=== PATIENT | male | born 1960 | race African-American/Black ===

== ENCOUNTER 2019-11-04 22:33 | Inpatient (IN) | payer OTHER ==
[2019-11-04 22:42] VITALS: BMI 32.6
--- NOTE | 2019-11-04 22:47 | PDOC ---
History of Present Illness - General Chief Complaint: Shortness of Breath Stated Complaint: DIFF. BREATHING Time Seen by Provider: 11/04/19 22:46 - History of Present Illness Initial Comments: Hx limited 2/2 patient clinical condition. Obtained via EMS. Jakob Yin is a 59 y/o male with PMH significant for ?CHF, ?COPD, BIBEMS today for lethargy and hypoxia. EMS reports that they were called by a coworker because the patient was lethargic. Saturations in the 70s per EMS. Placed on 5L NC with improvement to 90%. Pt is A&Ox3, lethargic, arousable to verbal and noxious stimuli. States that he does not have any complaints at this time. Past History - Medical History Allergies/Adverse Reactions: Allergies Allergy/AdvReac Type Severity Reaction Status Date / Time No Known Allergies Allergy Verified 11/04/19 22:42 Home Medications: Ambulatory Orders Albuterol Sulfate [Albuterol Sulfate Hfa] 1 - 2 inh IH Q4H PRN 11/05/19 Aripiprazole [Abilify] 10 mg PO HS 11/05/19 Ferrous Sulfate 325 mg PO DAILY 11/05/19 Furosemide [Lasix -] 40 mg PO DAILY 11/05/19 Metformin HCl [Glucophage] 500 mg PO BID 11/05/19 Prazosin HCl [Minipress -] 2 mg PO HS 11/05/19 - Psycho-Social/Smoking History Smoking History: Never smoked - Substance Abuse Hx (Audit-C & DAST Scrn) How often the patient has a drink containing alcohol: Monthly or less Number of drinks the patient has on a typical day: 1 or 2 How often the patient has six or more drinks on one occasion: Never Score: In Men: 4 or > Positive; In Women: 3 or > Positive: 1 Screen Result (Pos requires Nsg. Audit-10AR): Negative In the last yr the pt used illegal drug/Rx for NonMed reason: No Score: Yes response is considered Positive: 0 Screen Result (Positive result requires Nsg. DAST-10): Negative Review of Systems - Review of Systems Able to Perform ROS?: No (pt clinical condition ) *Physical Exam - Vital Signs Last Vital Signs Temp Pulse Resp BP Pulse Ox 97.3 F L 90 20 102/66 97 11/04/19 22:37 11/04/19 22:37 11/04/19 22:37 11/04/19 22:37 11/04/19 22:37 - Physical Exam GENERAL: Lethargic, arousable to noxious and verbal stimuli, A&Ox3, in no acute distress_ HEAD: No signs of trauma, normocephalic, atraumatic _ EYES: PERRLA, EOMI, sclera anicteric, conjunctiva clear_ ENT: Hearing grossly normal, nares patent, oropharynx clear without exudates. No uvular deviation. Moist mucosa_ NECK: Normal ROM, supple, no lymphadenopathy, JVD, or masses. No c-spine TTP. LUNGS: No distress, clear to auscultation bilaterally, positive air movements bilaterally. HEART: Regular rate and rhythm, normal S1 and S2, no murmurs appreciated, peripheral pulses normal and equal bilaterally._ ABDOMEN: Soft, nontender. No guarding, no rebound. No masses_ BACK: No open wounds or obvious trauma. EXTREMITIES: Normal inspection, Normal range of motion, no edema. No clubbing or cyanosis. No obvious trauma to extremities. NEUROLOGICAL: Unable to assess 2/2 patient clinical condition. SKIN: Warm, Dry, normal turgor, no rashes or lesions noted. ED Treatment Course - LABORATORY CBC & Chemistry Diagram: 11/06/19 06:20 11/06/19 06:20 Medical Decision Making - Medical Decision Making 59M ?CHF ?COPD BIBEMS for lethargy. Hypoxic to 70s, improved to 100% on 5L NC. VSS stable on presentation. Recently d/c from [facility] for possible sepsis. Call placed to [facility] for additional information but ED supervisor hardboard states no staff member available to provide additional info. -labs -tox screen -ct head/neck -ekg -cxr -urine -blood gas 11/04/19 23:17 CXR shows cardiomegaly otherwise no acute chest pathology. No prior CXR to compare. 11/04/19 23:43 ABG reviewed. Laboratory Last Values Anticoagulation Therapy No Result Required. 11/04/19 23:16 Puncture Site No Result Required. 11/04/19 23:16 Patient Temperature No Result Required. 11/04/19 23:16 ABG pH 7.178 (7.350-7.450) L* 11/04/19 23:16 ABG pCO2 72.80 mmHg (35-45) H* 11/04/19 23:16 ABG pO2 104.8 mmHg (80-100) H 11/04/19 23:16 ABG HCO3 26.4 mmol/L (22-27) 11/04/19 23:16 ABG O2 Sat (Measured) 96.2 mmHg (95-98) 11/04/19 23:16 ABG O2 Content No Result Required. 11/04/19 23:16 ABG Base Excess -3.8 mmol/L (-2-2) L 11/04/19 23:16 Lázaro Test No Result Required. 11/04/19 23:16 Patient On Oxygen No Result Required. 11/04/19 23:16 O2 Delivery Device No Result Required. 11/04/19 23:16 Oxygen Flow Rate No Result Required. 11/04/19 23:16 Vent Mode No Result Required. 11/04/19 23:16 Vent Rate No Result Required. 11/04/19 23:16 Mechanical Rate No Result Required. 11/04/19 23:16 PEEP No Result Required. 11/04/19 23:16 Pressure Support Vent No Result Required. 11/04/19 23:16 11/05/19 01:10 EKG shows 94 bpm, NSR, right axis, QTc 442, no ST elevation. 11/05/19 01:11 CT head negative for acute intracranial pathology. 11/05/19 01:37 CT neck negative for acute fracture. 11/05/19 01:46 Labs reviewed. Laboratory Last Values WBC 6.1 K/mm3 (4.0-10.0) 11/05/19 00:00 RBC 6.08 M/mm3 (4.00-5.60) H 11/05/19 00:00 Hgb 14.3 GM/dL (11.7-16.9) 11/05/19 00:00 Hct 49.5 % (35.4-49) H 11/05/19 00:00 MCV 81.5 fl (80-96) 11/05/19 00:00 MCH 23.5 pg (25.7-33.7) L 11/05/19 00:00 MCHC 28.8 g/dl (32.0-35.9) L 11/05/19 00:00 RDW 22.3 % (11.9-15.9) H 11/05/19 00:00 Plt Count 183 K/MM3 (134-434) 11/05/19 00:00 MPV 10.0 fl (7.5-11.1) 11/05/19 00:00 Absolute Neuts (auto) 2.7 K/mm3 (1.5-8.0) 11/05/19 00:00 Neutrophils % 44.1 % (42.8-82.8) 11/05/19 00:00 Lymphocytes % 43.1 % (8-40) H 11/05/19 00:00 Monocytes % 9.5 % (3.8-10.2) 11/05/19 00:00 Eosinophils % 2.9 % (0-4.5) 11/05/19 00:00 Basophils % 0.4 % (0-2.0) 11/05/19 00:00 Nucleated RBC % 0 % (0-0) 11/05/19 00:00 PT with INR 10.90 SEC (9.7-13.0) 11/05/19 00:08 INR 0.92 (0.83-1.09) 11/05/19 00:08 PTT (Actin FS) 38.3 SECONDS (25.2-36.5) H 11/05/19 00:08 Anticoagulation Therapy No Result Required. 11/04/19 23:16 Puncture Site No Result Required. 11/04/19 23:16 Patient Temperature No Result Required. 11/04/19 23:16 ABG pH 7.178 (7.350-7.450) L* 11/04/19 23:16 ABG pCO2 72.80 mmHg (35-45) H* 11/04/19 23:16 ABG pO2 104.8 mmHg (80-100) H 11/04/19 23:16 ABG HCO3 26.4 mmol/L (22-27) 11/04/19 23:16 ABG O2 Sat (Measured) 96.2 mmHg (95-98) 11/04/19 23:16 ABG O2 Content No Result Required. 11/04/19 23:16 ABG Base Excess -3.8 mmol/L (-2-2) L 11/04/19 23:16 Lázaro Test No Result Required. 07/06/20 23:16 Patient On Oxygen No Result Required. 11/04/19 23:16 O2 Delivery Device No Result Required. 11/04/19 23:16 Oxygen Flow Rate No Result Required. 11/04/19 23:16 Vent Mode No Result Required. 11/04/19 23:16 Vent Rate No Result Required. 11/04/19 23:16 Mechanical Rate No Result Required. 11/04/19 23:16 PEEP No Result Required. 11/04/19 23:16 Pressure Support Vent No Result Required. 11/04/19 23:16 Sodium 136 mmol/L (136-145) 11/05/19 00:08 Potassium 4.3 mmol/L (3.5-5.1) 11/05/19 00:08 Chloride 100 mmol/L (98-107) 11/05/19 00:08 Carbon Dioxide 31 mmol/L (21-32) 11/05/19 00:08 Anion Gap 5 MMOL/L (8-16) L 11/05/19 00:08 BUN 20.0 mg/dL (7-18) H 11/05/19 00:08 Creatinine 0.8 mg/dL (0.55-1.3) 11/05/19 00:08 Est GFR (CKD-EPI)AfAm 114.13 11/05/19 00:08 Est GFR (CKD-EPI)NonAf 98.47 11/05/19 00:08 Random Glucose 121 mg/dL (74-106) H 11/05/19 00:08 Lactic Acid 0.7 mmol/L (0.4-2.0) 11/05/19 00:06 Calcium 9.6 mg/dL (8.5-10.1) 11/05/19 00:08 Total Bilirubin 0.4 mg/dL (0.2-1) 11/05/19 00:08 AST 26 U/L (15-37) 11/05/19 00:08 ALT 30 U/L (13-61) 11/05/19 00:08 Alkaline Phosphatase 141 U/L (45-117) H 11/05/19 00:08 Ammonia 33.10 umol/L (11-32) H 11/05/19 00:00 Creatine Kinase 52 U/L (26-308) 11/05/19 00:08 Troponin I < 0.02 ng/ml (0.00-0.05) 11/05/19 00:08 B-Natriuretic Peptide 44.1 pg/ml (5-125) 11/05/19 00:05 Total Protein 9.4 g/dl (6.4-8.2) H 11/05/19 00:08 Albumin 4.1 g/dl (3.4-5.0) 11/05/19 00:08 TSH 3.98 uIU/ml (0.358-3.74) H 11/05/19 00:08 Alcohol, Quantitative < 3 mg/dL (0.0-5.0) 11/05/19 00:08 11/05/19 02:51 Labs reviewed. Laboratory Last Values WBC 6.1 K/mm3 (4.0-10.0) 11/05/19 00:00 RBC 6.08 M/mm3 (4.00-5.60) H 11/05/19 00:00 Hgb 14.3 GM/dL (11.7-16.9) 11/05/19 00:00 Hct 49.5 % (35.4-49) H 11/05/19 00:00 MCV 81.5 fl (80-96) 11/05/19 00:00 MCH 23.5 pg (25.7-33.7) L 11/05/19 00:00 MCHC 28.8 g/dl (32.0-35.9) L 11/05/19 00:00 RDW 22.3 % (11.9-15.9) H 11/05/19 00:00 Plt Count 183 K/MM3 (134-434) 11/05/19 00:00 MPV 10.0 fl (7.5-11.1) 11/05/19 00:00 Absolute Neuts (auto) 2.7 K/mm3 (1.5-8.0) 11/05/19 00:00 Neutrophils % 44.1 % (42.8-82.8) 11/05/19 00:00 Lymphocytes % 43.1 % (8-40) H 11/05/19 00:00 Monocytes % 9.5 % (3.8-10.2) 11/05/19 00:00 Eosinophils % 2.9 % (0-4.5) 11/05/19 00:00 Basophils % 0.4 % (0-2.0) 11/05/19 00:00 Nucleated RBC % 0 % (0-0) 11/05/19 00:00 PT with INR 10.90 SEC (9.7-13.0) 11/05/19 00:08 INR 0.92 (0.83-1.09) 11/05/19 00:08 PTT (Actin FS) 38.3 SECONDS (25.2-36.5) H 11/05/19 00:08 Anticoagulation Therapy No Result Required. 11/05/19 02:00 Puncture Site Right radial 11/05/19 02:00 Patient Temperature No Result Required. 11/05/19 02:00 ABG pH 7.211 (7.350-7.450) L 11/05/19 02:00 ABG pCO2 69.60 mmHg (35-45) H 11/05/19 02:00 ABG pO2 104.9 mmHg (80-100) H 11/05/19 02:00 ABG HCO3 27.3 mmol/L (22-27) H 11/05/19 02:00 ABG O2 Sat (Measured) 96.5 mmHg (95-98) 11/05/19 02:00 ABG O2 Content No Result Required. 11/05/19 02:00 ABG Base Excess -2.3 mmol/L (-2-2) L 11/05/19 02:00 Lázaro Test Positive 11/05/19 02:00 Patient On Oxygen Yes 11/05/19 02:00 O2 Delivery Device Abg 11/05/19 02:00 Oxygen Flow Rate 40% 11/05/19 02:[address] 11/05/19 02:00 Vent Rate 22 11/05/19 02:00 Mechanical Rate No Result Required. 11/05/19 02:00 PEEP 6.0 cmH2O 11/05/19 02:00 Pressure Support Vent 18/0 11/05/19 02:00 Sodium 136 mmol/L (136-145) 11/05/19 00:08 Potassium 4.3 mmol/L (3.5-5.1) 11/05/19 00:08 Chloride 100 mmol/L (98-107) 11/05/19 00:08 Carbon Dioxide 31 mmol/L (21-32) 11/05/19 00:08 Anion Gap 5 MMOL/L (8-16) L 11/05/19 00:08 BUN 20.0 mg/dL (7-18) H 11/05/19 00:08 Creatinine 0.8 mg/dL (0.55-1.3) 11/05/19 00:08 Est GFR (CKD-EPI)AfAm 114.13 11/05/19 00:08 Est GFR (CKD-EPI)NonAf 98.47 11/05/19 00:08 Random Glucose 121 mg/dL (74-106) H 11/05/19 00:08 Lactic Acid 0.7 mmol/L (0.4-2.0) 11/05/19 00:06 Calcium 9.6 mg/dL (8.5-10.1) 11/05/19 00:08 Total Bilirubin 0.4 mg/dL (0.2-1) 11/05/19 00:08 AST 26 U/L (15-37) 11/05/19 00:08 ALT 30 U/L (13-61) 11/05/19 00:08 Alkaline Phosphatase 141 U/L (45-117) H 11/05/19 00:08 Ammonia 33.10 umol/L (11-32) H 11/05/19 00:00 Creatine Kinase 52 U/L (26-308) 11/05/19 00:08 Troponin I < 0.02 ng/ml (0.00-0.05) 11/05/19 00:08 B-Natriuretic Peptide 44.1 pg/ml (5-125) 11/05/19 00:05 Total Protein 9.4 g/dl (6.4-8.2) H 11/05/19 00:08 Albumin 4.1 g/dl (3.4-5.0) 11/05/19 00:08 TSH 3.98 uIU/ml (0.358-3.74) H 11/05/19 00:08 Urine Color Yellow 11/05/19 01:43 Urine Appearance Clear 11/05/19 01:43 Urine pH 5.0 (5.0-8.0) 11/05/19 01:43 Ur Specific Markle 1.017 (1.010-1.035) 11/05/19 01:43 Urine Protein Negative (NEGATIVE) 11/05/19 01:43 Urine Glucose (UA) Negative (NEGATIVE) 11/05/19 01:43 Urine Ketones Negative (NEGATIVE) 11/05/19 01:43 Urine Blood Negative (NEGATIVE) 11/05/19 01:43 Urine Nitrite Negative (NEGATIVE) 11/05/19 01:43 Urine Bilirubin Negative (NEGATIVE) 11/05/19 01:43 Urine Urobilinogen 1.0 mg/dL (0.2-1.0) 11/05/19 01:43 Ur Leukocyte Esterase Negative (NEGATIVE) 11/05/19 01:43 Salicylates 2.6 mg/dL (2.8-20) L 11/05/19 00:05 Acetaminophen <2.0 ug/ml 11/05/19 00:05 Alcohol, Quantitative < 3 mg/dL (0.0-5.0) 11/05/19 00:08 ABG improving. Will start azithro. 11/05/19 03:26 UA reviewed. Laboratory Last Values WBC 6.1 K/mm3 (4.0-10.0) 11/05/19 00:00 RBC 6.08 M/mm3 (4.00-5.60) H 11/05/19 00:00 Hgb 14.3 GM/dL (11.7-16.9) 11/05/19 00:00 Hct 49.5 % (35.4-49) H 11/05/19 00:00 MCV 81.5 fl (80-96) 11/05/19 00:00 MCH 23.5 pg (25.7-33.7) L 11/05/19 00:00 MCHC 28.8 g/dl (32.0-35.9) L 11/05/19 00:00 RDW 22.3 % (11.9-15.9) H 11/05/19 00:00 Plt Count 183 K/MM3 (134-434) 11/05/19 00:00 MPV 10.0 fl (7.5-11.1) 11/05/19 00:00 Absolute Neuts (auto) 2.7 K/mm3 (1.5-8.0) 11/05/19 00:00 Neutrophils % 44.1 % (42.8-82.8) 11/05/19 00:00 Lymphocytes % 43.1 % (8-40) H 11/05/19 00:00 Monocytes % 9.5 % (3.8-10.2) 11/05/19 00:00 Eosinophils % 2.9 % (0-4.5) 11/05/19 00:00 Basophils % 0.4 % (0-2.0) 11/05/19 00:00 Nucleated RBC % 0 % (0-0) 11/05/19 00:00 PT with INR 10.90 SEC (9.7-13.0) 11/05/19 00:08 INR 0.92 (0.83-1.09) 11/05/19 00:08 PTT (Actin FS) 38.3 SECONDS (25.2-36.5) H 11/05/19 00:08 Anticoagulation Therapy No Result Required. 11/05/19 02:00 Puncture Site Right radial 11/05/19 02:00 Patient Temperature No Result Required. 11/05/19 02:00 ABG pH 7.211 (7.350-7.450) L 11/05/19 02:00 ABG pCO2 69.60 mmHg (35-45) H 11/05/19 02:00 ABG pO2 104.9 mmHg (80-100) H 11/05/19 02:00 ABG HCO3 27.3 mmol/L (22-27) H 11/05/19 02:00 ABG O2 Sat (Measured) 96.5 mmHg (95-98) 11/05/19 02:00 ABG O2 Content No Result Required. 11/05/19 02:00 ABG Base Excess -2.3 mmol/L (-2-2) L 11/05/19 02:00 Lázaro Test Positive 11/05/19 02:00 Patient On Oxygen Yes 11/05/19 02:00 O2 Delivery Device Abg 11/05/19 02:00 Oxygen Flow Rate 40% 11/05/19 02:[address] 11/05/19 02:00 Vent Rate 22 11/05/19 02:00 Mechanical Rate No Result Required. 11/05/19 02:00 PEEP 6.0 cmH2O 11/05/19 02:00 Pressure Support Vent 18/0 11/05/19 02:00 Sodium 136 mmol/L (136-145) 11/05/19 00:08 Potassium 4.3 mmol/L (3.5-5.1) 11/05/19 00:08 Chloride 100 mmol/L (98-107) 11/05/19 00:08 Carbon Dioxide 31 mmol/L (21-32) 11/05/19 00:08 Anion Gap 5 MMOL/L (8-16) L 11/05/19 00:08 BUN 20.0 mg/dL (7-18) H 11/05/19 00:08 Creatinine 0.8 mg/dL (0.55-1.3) 11/05/19 00:08 Est GFR (CKD-EPI)AfAm 114.13 11/05/19 00:08 Est GFR (CKD-EPI)NonAf 98.47 11/05/19 00:08 Random Glucose 121 mg/dL (74-106) H 11/05/19 00:08 Lactic Acid 0.7 mmol/L (0.4-2.0) 11/05/19 00:06 Calcium 9.6 mg/dL (8.5-10.1) 11/05/19 00:08 Total Bilirubin 0.4 mg/dL (0.2-1) 11/05/19 00:08 AST 26 U/L (15-37) 11/05/19 00:08 ALT 30 U/L (13-61) 11/05/19 00:08 Alkaline Phosphatase 141 U/L (45-117) H 11/05/19 00:08 Ammonia 33.10 umol/L (11-32) H 11/05/19 00:00 Creatine Kinase 52 U/L (26-308) 11/05/19 00:08 Troponin I < 0.02 ng/ml (0.00-0.05) 11/05/19 00:08 B-Natriuretic Peptide 44.1 pg/ml (5-125) 11/05/19 00:05 Total Protein 9.4 g/dl (6.4-8.2) H 11/05/19 00:08 Albumin 4.1 g/dl (3.4-5.0) 11/05/19 00:08 TSH 3.98 uIU/ml (0.358-3.74) H 11/05/19 00:08 Urine Color Yellow 11/05/19 01:43 Urine Appearance Clear 11/05/19 01:43 Urine pH 5.0 (5.0-8.0) 11/05/19 01:43 Ur Specific Markle 1.017 (1.010-1.035) 11/05/19 01:43 Urine Protein Negative (NEGATIVE) 11/05/19 01:43 Urine Glucose (UA) Negative (NEGATIVE) 11/05/19 01:43 Urine Ketones Negative (NEGATIVE) 11/05/19 01:43 Urine Blood Negative (NEGATIVE) 11/05/19 01:43 Urine Nitrite Negative (NEGATIVE) 11/05/19 01:43 Urine Bilirubin Negative (NEGATIVE) 11/05/19 01:43 Urine Urobilinogen 1.0 mg/dL (0.2-1.0) 11/05/19 01:43 Ur Leukocyte Esterase Negative (NEGATIVE) 11/05/19 01:43 Salicylates 2.6 mg/dL (2.8-20) L 11/05/19 00:05 Opiates Screen Positive ng/ml (JXSKOQ=552) A* 11/05/19 01:43 Methadone Screen Negative ng/ml (NIINXQ=817) 11/05/19 01:43 Acetaminophen <2.0 ug/ml 11/05/19 00:05 Barbiturate Screen Negative ng/ml (PLUYUI=173) 11/05/19 01:43 Phencyclidine Screen Negative ng/ml (CUTOFF=25) 11/05/19 01:43 Ur Amphetamines Screen Negative ng/ml (NHYPZF=297) 11/05/19 01:43 MDMA (Ecstasy) Screen Negative ng/ml (GNFXQQ=911) 11/05/19 01:43 Benzodiazepines Screen Positive ng/ml (APXCQT=501) A* 11/05/19 01:43 Cocaine Screen Positive ng/ml (SLTCIO=040) A* 11/05/19 01:43 U Marijuana (THC) Screen Positive ng/ml (CUTOFF=50) A* 11/05/19 01:43 Alcohol, Quantitative < 3 mg/dL (0.0-5.0) 11/05/19 00:08 11/05/19 06:20 Labs reviewed. Laboratory Last Values WBC 6.1 K/mm3 (4.0-10.0) 11/05/19 00:00 RBC 6.08 M/mm3 (4.00-5.60) H 11/05/19 00:00 Hgb 14.3 GM/dL (11.7-16.9) 11/05/19 00:00 Hct 49.5 % (35.4-49) H 11/05/19 00:00 MCV 81.5 fl (80-96) 11/05/19 00:00 MCH 23.5 pg (25.7-33.7) L 11/05/19 00:00 MCHC 28.8 g/dl (32.0-35.9) L 11/05/19 00:00 RDW 22.3 % (11.9-15.9) H 11/05/19 00:00 Plt Count 183 K/MM3 (134-434) 11/05/19 00:00 MPV 10.0 fl (7.5-11.1) 11/05/19 00:00 Absolute Neuts (auto) 2.7 K/mm3 (1.5-8.0) 11/05/19 00:00 Neutrophils % 44.1 % (42.8-82.8) 11/05/19 00:00 Lymphocytes % 43.1 % (8-40) H 11/05/19 00:00 Monocytes % 9.5 % (3.8-10.2) 11/05/19 00:00 Eosinophils % 2.9 % (0-4.5) 11/05/19 00:00 Basophils % 0.4 % (0-2.0) 11/05/19 00:00 Nucleated RBC % 0 % (0-0) 11/05/19 00:00 Platelet Estimate Adequate 11/05/19 00:00 Anisocytosis 2+ 11/05/19 00:00 Macrocytosis 1+ 11/05/19 00:00 PT with INR 10.90 SEC (9.7-13.0) 11/05/19 00:08 INR 0.92 (0.83-1.09) 11/05/19 00:08 PTT (Actin FS) 38.3 SECONDS (25.2-36.5) H 11/05/19 00:08 Anticoagulation Therapy No Result Required. 11/05/19 04:45 Puncture Site Right radial 11/05/19 04:45 Patient Temperature No Result Required. 11/05/19 04:45 ABG pH 7.117 (7.350-7.450) L* 11/05/19 04:45 ABG pCO2 89.20 mmHg (35-45) H* 11/05/19 04:45 ABG pO2 35.9 mmHg (80-100) L* 11/05/19 04:45 ABG HCO3 28.2 mmol/L (22-27) H 11/05/19 04:45 ABG O2 Sat (Measured) 49.1 mmHg (95-98) L 11/05/19 04:45 ABG O2 Content No Result Required. 11/05/19 04:45 ABG Base Excess -3.7 mmol/L (-2-2) L 11/05/19 04:45 Lázaro Test Positive 11/05/19 04:45 Patient On Oxygen Yes 11/05/19 04:45 O2 Delivery Device Abg 11/05/19 04:45 Oxygen Flow Rate 40 11/05/19 04:[address] 11/05/19 04:45 Vent Rate 26 11/05/19 04:45 Mechanical Rate No Result Required. 11/05/19 04:45 PEEP 6.0 cmH2O 11/05/19 04:45 Pressure Support Vent 18 11/05/19 04:45 Sodium 136 mmol/L (136-145) 11/05/19 00:08 Potassium 4.3 mmol/L (3.5-5.1) 11/05/19 00:08 Chloride 100 mmol/L (98-107) 11/05/19 00:08 Carbon Dioxide 31 mmol/L (21-32) 11/05/19 00:08 Anion Gap 5 MMOL/L (8-16) L 11/05/19 00:08 BUN 20.0 mg/dL (7-18) H 11/05/19 00:08 Creatinine 0.8 mg/dL (0.55-1.3) 11/05/19 00:08 Est GFR (CKD-EPI)AfAm 114.13 11/05/19 00:08 Est GFR (CKD-EPI)NonAf 98.47 11/05/19 00:08 Random Glucose 121 mg/dL (74-106) H 11/05/19 00:08 Lactic Acid 0.7 mmol/L (0.4-2.0) 11/05/19 00:06 Calcium 9.6 mg/dL (8.5-10.1) 11/05/19 00:08 Total Bilirubin 0.4 mg/dL (0.2-1) 11/05/19 00:08 AST 26 U/L (15-37) 11/05/19 00:08 ALT 30 U/L (13-61) 11/05/19 00:08 Alkaline Phosphatase 141 U/L (45-117) H 11/05/19 00:08 Ammonia 33.10 umol/L (11-32) H 11/05/19 00:00 Creatine Kinase 52 U/L (26-308) 11/05/19 00:08 Troponin I < 0.02 ng/ml (0.00-0.05) 11/05/19 00:08 B-Natriuretic Peptide 44.1 pg/ml (5-125) 11/05/19 00:05 Total Protein 9.4 g/dl (6.4-8.2) H 11/05/19 00:08 Albumin 4.1 g/dl (3.4-5.0) 11/05/19 00:08 TSH 3.98 uIU/ml (0.358-3.74) H 11/05/19 00:08 Urine Color Yellow 11/05/19 01:43 Urine Appearance Clear 11/05/19 01:43 Urine pH 5.0 (5.0-8.0) 11/05/19 01:43 Ur Specific Markle 1.017 (1.010-1.035) 11/05/19 01:43 Urine Protein Negative (NEGATIVE) 11/05/19 01:43 Urine Glucose (UA) Negative (NEGATIVE) 11/05/19 01:43 Urine Ketones Negative (NEGATIVE) 11/05/19 01:43 Urine Blood Negative (NEGATIVE) 11/05/19 01:43 Urine Nitrite Negative (NEGATIVE) 11/05/19 01:43 Urine Bilirubin Negative (NEGATIVE) 11/05/19 01:43 Urine Urobilinogen 1.0 mg/dL (0.2-1.0) 11/05/19 01:43 Ur Leukocyte Esterase Negative (NEGATIVE) 11/05/19 01:43 Salicylates 2.6 mg/dL (2.8-20) L 11/05/19 00:05 Opiates Screen Positive ng/ml (VMKHEH=315) A* 11/05/19 01:43 Methadone Screen Negative ng/ml (QGYRWX=308) 11/05/19 01:43 Acetaminophen <2.0 ug/ml 11/05/19 00:05 Barbiturate Screen Negative ng/ml (SOWYJX=716) 11/05/19 01:43 Phencyclidine Screen Negative ng/ml (CUTOFF=25) 11/05/19 01:43 Ur Amphetamines Screen Negative ng/ml (BLGXGY=229) 11/05/19 01:43 MDMA (Ecstasy) Screen Negative ng/ml (RJIDIV=174) 11/05/19 01:43 Benzodiazepines Screen Positive ng/ml (CGBZWD=172) A* 11/05/19 01:43 Cocaine Screen Positive ng/ml (SZGPRR=788) A* 11/05/19 01:43 U Marijuana (THC) Screen Positive ng/ml (CUTOFF=50) A* 11/05/19 01:43 Alcohol, Quantitative < 3 mg/dL (0.0-5.0) 11/05/19 00:08 D/w Dr. Tompkins who accepts the pt for ICU admission. Discharge - Discharge Information Problems reviewed: Yes Clinical Impression/Diagnosis: Hypercapnic respiratory failure Qualifiers: Chronicity: acute on chronic Qualified Code(s): J96.22 - Acute and chronic respiratory failure with hypercapnia Condition: Guarded - Admission Yes - Follow up/Referral - Patient Discharge Instructions - Post Discharge Activity
[2019-11-04 23:28] LABS: ARTERIAL BLD GAS O2 SATURATION 96.2 mmHg (95-98); ARTERIAL BLOOD GAS BASE EXCESS -3.8 mmol/L (-2-2); ARTERIAL BLOOD GAS PO2 104.8 mmHg (80-100)
[2019-11-04 23:38] LABS: ARTERIAL BLOOD GAS pH 7.178 (7.350-7.450)
--- NOTE | 2019-11-04 23:58 | PDOC ---
Documentation entered by Yasmany Layne SCRIBE, acting as scribe for Jennifer Vegas MD. Jennifer Vegas MD: This documentation has been prepared by the Amol funez Xhesika, SCRIBE, under my direction and personally reviewed by me in its entirety. I confirm that the documentation accurately reflects all work, treatment, procedures, and medical decision making performed by me. Attending Attestation - Resident Resident Name: Jorje Cruz - ED Attending Attestation I have performed the following: I have examined & evaluated the patient, The case was reviewed & discussed with the resident, I agree w/resident's findings & plan, Exceptions are as noted - HPI HPI: 11/04/19 22:51 The patient is a 59y/o M with a PMH of CHF, ?COPD who presents to the ED BIBA for shortness of breath and lethargy. Pt is a poor historian, history provided by EMS. Per EMS, pt's coworker called 911 because patient has been lethargic over the past several days. Pt was recently d/c from [facility] for sepsis. Allergies: NKDA - Physicial Exam PE: 11/04/19 23:55 59-year-old male brought in by ambulance for lethargy, recently discharged from [facility] where he was treated for sepsis Head normocephalic atraumatic Neck supple Lungs no wheezing or crackles appreciated CVS [id number] abdomen no rebound Extremities chronic venous stasis, mild edema Neuro patient will respond to noxious stimuli and verbal commands and can answer simple questions - Medical Decision Making 11/05/19 01:11 this 59 yo male BIBA for lethargy,recently d/c from [facility] pt on bipap 16/10, rate=22, fio2=40% Discharge - Discharge Information Problems reviewed: Yes Clinical Impression/Diagnosis: Hypercapnic respiratory failure Qualifiers: Chronicity: acute on chronic Qualified Code(s): J96.22 - Acute and chronic respiratory failure with hypercapnia Condition: Stable - Follow up/Referral - Patient Discharge Instructions - Post Discharge Activity
[2019-11-05 01:03] LABS: BASO % 0.4 % (0-2.0); EOS % 2.9 % (0-4.5); HEMATOCRIT 49.5 % (35.4-49); HEMOGLOBIN 14.3 GM/dL (11.7-16.9); LYMPH % 43.1 % (8-40); MCH 23.5 pg (25.7-33.7); MCHC 28.8 g/dl (32.0-35.9); MEAN CELL VOLUME 81.5 fl (80-96); MONO % 9.5 % (3.8-10.2); NEUT % 44.1 % (42.8-82.8); PLATELET COUNT 183 K/MM3 (134-434); RBC 6.08 M/mm3 (4.00-5.60); RDW 22.3 % (11.9-15.9); WHITE BLOOD COUNT 6.1 K/mm3 (4.0-10.0)
[2019-11-05] MEDS ORDERED: SODIUM CHLORIDE 0.9% 500 ML INFUS.BAG IV ONE (01:12)
[2019-11-05 01:15] LABS: INR 0.92 (0.83-1.09); PROTHROMBIN TIME (PATIENT) 10.9 SEC (9.7-13.0)
[2019-11-05 01:18] LABS: ACTIVATED PTT 38.3 SECONDS (25.2-36.5)
[2019-11-05 01:29] LABS: ALBUMIN 4.1 g/dl (3.4-5.0); ALK PHOS 141 U/L (45-117); ANION GAP 5 MMOL/L (8-16); BILIRUBIN,TOTAL 0.4 mg/dL (0.2-1); CALCIUM 9.6 mg/dL (8.5-10.1); CHLORIDE 100 mmol/L (98-107); CO2 31 mmol/L (21-32); CREATININE 0.8 mg/dL (0.55-1.3); GLUCOSE,RANDOM 121 mg/dL (74-106); POTASSIUM 4.3 mmol/L (3.5-5.1); SGOT/AST 26 U/L (15-37); SGPT/ALT 30 U/L (13-61); SODIUM 136 mmol/L (136-145); TOT PROT 9.4 g/dl (6.4-8.2)
[2019-11-05 02:32] LABS: URINE APPEARANCE CLEAR; URINE BILIRUBIN NEGATIVE (NEGATIVE); URINE COLOR YELLOW; URINE GLUCOSE (UA) NEGATIVE (NEGATIVE); URINE KETONE NEGATIVE (NEGATIVE); URINE LEUK ESTERASE NEGATIVE (NEGATIVE); URINE NITRITE NEGATIVE (NEGATIVE); URINE PROTEIN NEGATIVE (NEGATIVE)
[2019-11-05 02:35] LABS: ARTERIAL BLD GAS O2 SATURATION 96.5 mmHg (95-98); ARTERIAL BLOOD GAS BASE EXCESS -2.3 mmol/L (-2-2); ARTERIAL BLOOD GAS PO2 104.9 mmHg (80-100); ARTERIAL BLOOD GAS pH 7.211 (7.350-7.450)
[2019-11-05 02:38] LABS: ALLENS TEST POSITIVE
[2019-11-05 02:40] LABS: VENT MODE ST; VENT RATE 22
[2019-11-05] MEDS ORDERED: AZITHROMYCIN IVPB 500 MG in DEXTROSE 5%-WATER - 250 ML IVPB ONE (02:50)
[2019-11-05] MEDS ORDERED: AZITHROMYCIN IVPB 500 MG/250 ML BAG IVPB ONE (03:03)
[2019-11-05 03:08] LABS: METHADONE, UR NEGATIVE ng/ml (CUTOFF=300); PHENCYCLIDINE,URINE NEGATIVE ng/ml (CUTOFF=25); URINE AMPHETAMINES NEGATIVE ng/ml (CUTOFF=500); URINE BARBITURATES NEGATIVE ng/ml (CUTOFF=200)
[2019-11-05 03:19] LABS: COCAINE, UR POSITIVE ng/ml (CUTOFF=300); OPIATES, URI POSITIVE ng/ml (CUTOFF=300); URINE BENZODIAZEPINES POSITIVE ng/ml (CUTOFF=200)
[2019-11-05 04:37] LABS: ANISOCYTOSIS 2+; MACROCYTOSIS 1+; PLATELET ESTIMATE ADEQUATE
[2019-11-05 04:57] LABS: ARTERIAL BLD GAS O2 SATURATION 49.1 mmHg (95-98); ARTERIAL BLOOD GAS BASE EXCESS -3.7 mmol/L (-2-2)
[2019-11-05 05:33] LABS: ALLENS TEST POSITIVE
[2019-11-05 05:34] LABS: VENT MODE ST; VENT RATE 26
[2019-11-05 05:36] LABS: ARTERIAL BLOOD GAS pH 7.117 (7.350-7.450)
[2019-11-05 05:37] LABS: ARTERIAL BLOOD GAS PO2 35.9 mmHg (80-100)
--- NOTE | 2019-11-05 06:16 | HP ---
CHIEF COMPLAINT: lethargy PCP: HISTORY OF PRESENT ILLNESS: Pt is a 59 y/o male with COPD and ?CHF who presents via EMS after being found lethargic and short of breath by a coworker. His SpO2 was in the 70s in the field before improving to 90% on 5L NC. He does not recall what happened prior to coming in to ED. He denies feeling ill in recent days. He reports he was at [facility] twice in the several weeks. He stayed for several days, left AMA then returned for 5 more days, possibly being treated for sepsis. He has been discharged for about 1 week now. He reports he was discharged with abx among other medications. Pt reports he is "borderline homeless," and his belongings are not "secure." This is why he had to leave AMA previously, and why he said today he wanted to leave and "come back later." Pt endorses inhaling heroin, intermittent marijuana use, and daily tobacco use (4-5 cigarettes). He denies benzo and cocaine use. He currently denies chest pain, shortness of breath, abdominal pain, nausea, vomiting, or myalgias. He reports LE swelling. ER course was notable for: (1) ABG- pH 7.18, pCO2 72.8, pO2 104.8, HCO3 26.4; placed on BiPAP (2) Azithromycin, 500cc IV bolus (3) CT c-spine C6-7 disc degeneration with osetophytes, no acute processes; CT head mild age-related involutional changes, no acute processes (4) urine tox + cocaine, BZD, opiates, marijuana (5) EKG NSR, HR 94, right axis deviation, no acute ST changes, QTc 442 (6) CXR mild cardiomegaly, mild b/l increased interstitial markings, mild atelectasis right lung base vs scarring, cannot r/o superimposed infiltrates, shrapnel in right lower chest PAST MEDICAL HISTORY: COPD ?CHF PAST SURGICAL HISTORY: unknown Allergies No Known Allergies Allergy (Verified 11/04/19 22:42) HOME MEDICATIONS: [facility] pt unsure names of medications he is taking. REVIEW OF SYSTEMS see HPI PHYSICAL EXAMINATION Vital Signs - 24 hr 11/04/19 11/04/19 11/05/19 22:37 22:40 01:15 Temperature 97.3 F L Pulse Rate 90 Pulse Rate [ Apical] Respiratory 20 Rate Blood Pressure 102/66 Blood Pressure [Right Arm] O2 Sat by Pulse 97 98 100 Oximetry (%) 11/05/19 11/05/19 11/05/19 02:25 02:27 04:15 Temperature 97.3 F L Pulse Rate 96 H Pulse Rate [ 99 H Apical] Respiratory 26 H Rate Blood Pressure Blood Pressure 109/68 [Right Arm] O2 Sat by Pulse 99 99 100 Oximetry (%) 11/05/19 04:30 Temperature Pulse Rate Pulse Rate [ Apical] Respiratory Rate Blood Pressure Blood Pressure [Right Arm] O2 Sat by Pulse 100 Oximetry (%) GENERAL: Lethargic, oriented x3 HEAD: Normal with no signs of trauma. EYES: Pupils equal, round and reactive to light, extraocular movements intact, conjunctiva clear. EARS, NOSE, THROAT: Ears normal, nares patent, moist mucous membranes. NECK: Normal range of motion. LUNGS: Clear to auscultation bilaterally. No wheezes, and no crackles. No accessory muscle use. On BiPAP. HEART: Tachycardic, regular rhythm, no murmur appreciated. ABDOMEN: Soft, nontender, not distended, normoactive bowel sounds. UPPER EXTREMITIES: Warm, well-perfused. No peripheral edema. LOWER EXTREMITIES: Warm, well-perfused. +1 pitting edema b/l to mid shins. Flaking skin plantar surfaces of feet, onychomycosis. NEUROLOGICAL: Cranial nerves II-XII grossly intact. PSYCHIATRIC: Cooperative. Good eye contact. Appropriate mood and affect. SKIN: Warm, dry, normal turgor. Laboratory Results - last 24 hr 11/04/19 11/05/19 11/05/19 23:16 00:00 00:00 WBC 6.1 RBC 6.08 H Hgb 14.3 Hct 49.5 H MCV 81.5 MCH 23.5 L MCHC 28.8 L RDW 22.3 H Plt Count 183 MPV 10.0 Absolute Neuts (auto) 2.7 Neutrophils % 44.1 Lymphocytes % 43.1 H Monocytes % 9.5 Eosinophils % 2.9 Basophils % 0.4 Nucleated RBC % 0 Platelet Estimate Adequate Anisocytosis 2+ Macrocytosis 1+ PT with INR INR PTT (Actin FS) Anticoagulation Therapy No Result Required. Puncture Site No Result Required. Patient Temperature No Result Required. ABG pH 7.178 L* ABG pCO2 72.80 H* ABG pO2 104.8 H ABG HCO3 26.4 ABG O2 Sat (Measured) 96.2 ABG O2 Content No Result Required. ABG Base Excess -3.8 L Lázaro Test No Result Required. Patient On Oxygen No Result Required. O2 Delivery Device No Result Required. Oxygen Flow Rate No Result Required. Vent Mode No Result Required. Vent Rate No Result Required. Mechanical Rate No Result Required. PEEP No Result Required. Pressure Support Vent No Result Required. Sodium Potassium Chloride Carbon Dioxide Anion Gap BUN Creatinine Est GFR (CKD-EPI)AfAm Est GFR (CKD-EPI)NonAf Random Glucose Lactic Acid Calcium Total Bilirubin AST ALT Alkaline Phosphatase Ammonia 33.10 H Creatine Kinase Troponin I B-Natriuretic Peptide Total Protein Albumin TSH Urine Color Urine Appearance Urine pH Ur Specific [place] Urine Protein Urine Glucose (UA) Urine Ketones Urine Blood Urine Nitrite Urine Bilirubin Urine Urobilinogen Ur Leukocyte Esterase Salicylates Opiates Screen Methadone Screen Acetaminophen Barbiturate Screen Phencyclidine Screen Ur Amphetamines Screen MDMA (Ecstasy) Screen Benzodiazepines Screen Cocaine Screen U Marijuana (THC) Screen Alcohol, Quantitative 11/05/19 11/05/19 11/05/19 00:05 00:05 00:05 WBC RBC Hgb Hct MCV MCH MCHC RDW Plt Count MPV Absolute Neuts (auto) Neutrophils % Lymphocytes % Monocytes % Eosinophils % Basophils % Nucleated RBC % Platelet Estimate Anisocytosis Macrocytosis PT with INR INR PTT (Actin FS) Anticoagulation Therapy Puncture Site Patient Temperature ABG pH ABG pCO2 ABG pO2 ABG HCO3 ABG O2 Sat (Measured) ABG O2 Content ABG Base Excess Lázaro Test Patient On Oxygen O2 Delivery Device Oxygen Flow Rate Vent Mode Vent Rate Mechanical Rate PEEP Pressure Support Vent Sodium Potassium Chloride Carbon Dioxide Anion Gap BUN Creatinine Est GFR (CKD-EPI)AfAm Est GFR (CKD-EPI)NonAf Random Glucose Lactic Acid Calcium Total Bilirubin AST ALT Alkaline Phosphatase Ammonia Creatine Kinase Troponin I B-Natriuretic Peptide 44.1 Total Protein Albumin TSH Urine Color Urine Appearance Urine pH Ur Specific [place] Urine Protein Urine Glucose (UA) Urine Ketones Urine Blood Urine Nitrite Urine Bilirubin Urine Urobilinogen Ur Leukocyte Esterase Salicylates 2.6 L Opiates Screen Methadone Screen Acetaminophen <2.0 Barbiturate Screen Phencyclidine Screen Ur Amphetamines Screen MDMA (Ecstasy) Screen Benzodiazepines Screen Cocaine Screen U Marijuana (THC) Screen Alcohol, Quantitative 11/05/19 11/05/19 11/05/19 00:06 00:08 00:08 WBC RBC Hgb Hct MCV MCH MCHC RDW Plt Count MPV Absolute Neuts (auto) Neutrophils % Lymphocytes % Monocytes % Eosinophils % Basophils % Nucleated RBC % Platelet Estimate Anisocytosis Macrocytosis PT with INR 10.90 INR 0.92 PTT (Actin FS) 38.3 H Anticoagulation Therapy Puncture Site Patient Temperature ABG pH ABG pCO2 ABG pO2 ABG HCO3 ABG O2 Sat (Measured) ABG O2 Content ABG Base Excess Lázaro Test Patient On Oxygen O2 Delivery Device Oxygen Flow Rate Vent Mode Vent Rate Mechanical Rate PEEP Pressure Support Vent Sodium 136 Potassium 4.3 Chloride 100 Carbon Dioxide 31 Anion Gap 5 L BUN 20.0 H Creatinine 0.8 Est GFR (CKD-EPI)AfAm 114.13 Est GFR (CKD-EPI)NonAf 98.47 Random Glucose 121 H Lactic Acid 0.7 Calcium 9.6 Total Bilirubin 0.4 AST 26 ALT 30 Alkaline Phosphatase 141 H Ammonia Creatine Kinase 52 Troponin I < 0.02 B-Natriuretic Peptide Total Protein 9.4 H Albumin 4.1 TSH 3.98 H Urine Color Urine Appearance Urine pH Ur Specific [place] Urine Protein Urine Glucose (UA) Urine Ketones Urine Blood Urine Nitrite Urine Bilirubin Urine Urobilinogen Ur Leukocyte Esterase Salicylates Opiates Screen Methadone Screen Acetaminophen Barbiturate Screen Phencyclidine Screen Ur Amphetamines Screen MDMA (Ecstasy) Screen Benzodiazepines Screen Cocaine Screen U Marijuana (THC) Screen Alcohol, Quantitative 11/05/19 11/05/19 11/05/19 00:08 01:43 01:43 WBC RBC Hgb Hct MCV MCH MCHC RDW Plt Count MPV Absolute Neuts (auto) Neutrophils % Lymphocytes % Monocytes % Eosinophils % Basophils % Nucleated RBC % Platelet Estimate Anisocytosis Macrocytosis PT with INR INR PTT (Actin FS) Anticoagulation Therapy Puncture Site Patient Temperature ABG pH ABG pCO2 ABG pO2 ABG HCO3 ABG O2 Sat (Measured) ABG O2 Content ABG Base Excess Lázaro Test Patient On Oxygen O2 Delivery Device Oxygen Flow Rate Vent Mode Vent Rate Mechanical Rate PEEP Pressure Support Vent Sodium Potassium Chloride Carbon Dioxide Anion Gap BUN Creatinine Est GFR (CKD-EPI)AfAm Est GFR (CKD-EPI)NonAf Random Glucose Lactic Acid Calcium Total Bilirubin AST ALT Alkaline Phosphatase Ammonia Creatine Kinase Troponin I B-Natriuretic Peptide Total Protein Albumin TSH Urine Color Yellow Urine Appearance Clear Urine pH 5.0 Ur Specific [place] 1.017 Urine Protein Negative Urine Glucose (UA) Negative Urine Ketones Negative Urine Blood Negative Urine Nitrite Negative Urine Bilirubin Negative Urine Urobilinogen 1.0 Ur Leukocyte Esterase Negative Salicylates Opiates Screen Positive A* Methadone Screen Negative Acetaminophen Barbiturate Screen Negative Phencyclidine Screen Negative Ur Amphetamines Screen Negative MDMA (Ecstasy) Screen Negative Benzodiazepines Screen Positive A* Cocaine Screen Positive A* U Marijuana (THC) Screen Positive A* Alcohol, Quantitative < 3 11/05/19 11/05/19 02:00 04:45 WBC RBC Hgb Hct MCV MCH MCHC RDW Plt Count MPV Absolute Neuts (auto) Neutrophils % Lymphocytes % Monocytes % Eosinophils % Basophils % Nucleated RBC % Platelet Estimate Anisocytosis Macrocytosis PT with INR INR PTT (Actin FS) Anticoagulation Therapy No Result Required. No Result Required. Puncture Site Right radial Right radial Patient Temperature No Result Required. No Result Required. ABG pH 7.211 L 7.117 L* ABG pCO2 69.60 H 89.20 H* ABG pO2 104.9 H 35.9 L* ABG HCO3 27.3 H 28.2 H ABG O2 Sat (Measured) 96.5 49.1 L ABG O2 Content No Result Required. No Result Required. ABG Base Excess -2.3 L -3.7 L Lázaro Test Positive Positive Patient On Oxygen Yes Yes O2 Delivery Device Abg Abg Oxygen Flow Rate 40% [address] Vent Rate 22 26 Mechanical Rate No Result Required. No Result Required. PEEP 6.0 6.0 Pressure Support Vent 18/0 18 Sodium Potassium Chloride Carbon Dioxide Anion Gap BUN Creatinine Est GFR (CKD-EPI)AfAm Est GFR (CKD-EPI)NonAf Random Glucose Lactic Acid Calcium Total Bilirubin AST ALT Alkaline Phosphatase Ammonia Creatine Kinase Troponin I B-Natriuretic Peptide Total Protein Albumin TSH Urine Color Urine Appearance Urine pH Ur Specific [place] Urine Protein Urine Glucose (UA) Urine Ketones Urine Blood Urine Nitrite Urine Bilirubin Urine Urobilinogen Ur Leukocyte Esterase Salicylates Opiates Screen Methadone Screen Acetaminophen Barbiturate Screen Phencyclidine Screen Ur Amphetamines Screen MDMA (Ecstasy) Screen Benzodiazepines Screen Cocaine Screen U Marijuana (THC) Screen Alcohol, Quantitative ASSESSMENT/PLAN: Pt is a 59 y/o male with COPD, substance use disorder, and ?CHF who presents via EMS after being found lethargic and short of breath at work. He was hypoxic to the 70s before improving on 5L NC to 90%. He is admitted for acute hypoxic respiratory failure. #neuro -more alert than at presentation but still lethargic -continue to monitor status #cardio -questionable hx of CHF -currently hemodynamically stable -tele monitoring #pulm -acute hypoxic respiratory failure possibly 2/2 to drug overdose -cannot r/o COPD exacerbation, PNA, and CHF -1st ABG- pH 7.18, pCO2 72.8, pO2 104.8, HCO3 26.4, O2 96.2, improved 2nd set, 3rd set shows pH 7.12, pCO2 89.2, pO2 35.9, HCO3 28.2, O2 49.1 but unsure if venous vs arterial -CXR mild cardiomegaly, mild b/l increased interstitial markings, mild atelectasis right lung base vs scarring, cannot r/o superimposed infiltrates, shrapnel in right lower chest -recheck ABG -continue BiPAP -continue azithromycin -ceftriaxone 1g daily -solu-medrol 125mg x1, consider more steroids #renal -normal renal function #endo -TSH 3.98, could be elevated due to acute illness -will need repeat TSH in a couple weeks to determine if he needs Synthroid DVT Ppx Lovenox FEN no standing IV fluids monitor labs NPO, except sips of water, until more alert dispo ICU strongly consider tele if still responsive FULL CODE needs meds reconciled Visit type - Emergency Visit Emergency Visit: Yes ED Registration Date: 11/05/19 Care time: The patient presented to the Emergency Department on the above date and was hospitalized for further evaluation of their emergent condition. - New Patient This patient is new to me today: Yes Date on this admission: 11/05/19 - Critical Care Critical Care patient: Yes Total Critical Care Time (in minutes): 35 Critical Care Statement: The care of this patient involved high complexity decision making to prevent further life threatening deterioration of the patient's condition and/or to evaluate & treat vital organ system(s) failure or risk of failure. ATTENDING PHYSICIAN STATEMENT I saw and evaluated the patient. I reviewed the resident's note and discussed the case with the resident. I agree with the resident's findings and plan as documented. SUBJECTIVE: OBJECTIVE: ASSESSMENT AND PLAN:
[2019-11-05] MEDS ORDERED: ALBUTEROL SO4 2.5/IPRATROPIUM 0.5 INH SOL 3 ML VIAL.NEB. NEB ONE (06:38)
[2019-11-05] MEDS ORDERED: methylPREDNISolone NA SUCC 125 MG/2 ML VIAL IVPUSH ONE (06:39)
[2019-11-05] MEDS ORDERED: CEFTRIAXONE 1 GM in DEXTROSE 5%-WATER - 50 ML IVPB SCH (07:00)
--- NOTE | 2019-11-05 07:46 | PDOC ---
*Physical Exam - Vital Signs Last Vital Signs Temp Pulse Resp BP Pulse Ox 97.5 F L 83 19 128/76 99 11/05/19 06:43 11/05/19 06:43 11/05/19 06:43 11/05/19 06:43 11/05/19 06:43 ED Treatment Course - LABORATORY CBC & Chemistry Diagram: 11/05/19 00:00 11/05/19 00:08 - ADDITIONAL ORDERS Additional order review: Laboratory Results 11/05/19 11/05/19 11/05/19 04:45 02:00 01:43 PT with INR INR PTT (Actin FS) Anticoagulation Therapy No Result Required. No Result Required. Puncture Site Right radial Right radial Patient Temperature No Result Required. No Result Required. ABG pH 7.117 L* 7.211 L ABG pCO2 89.20 H* 69.60 H ABG pO2 35.9 L* 104.9 H ABG HCO3 28.2 H 27.3 H ABG O2 Sat (Measured) 49.1 L 96.5 ABG O2 Content No Result Required. No Result Required. ABG Base Excess -3.7 L -2.3 L Lázaro Test Positive Positive Patient On Oxygen Yes Yes O2 Delivery Device Abg Abg Oxygen Flow Rate 40 40% Vent Mode St St Vent Rate 26 22 Mechanical Rate No Result Required. No Result Required. PEEP 6.0 6.0 Pressure Support Vent 18 18/0 Sodium Potassium Chloride Carbon Dioxide Anion Gap BUN Creatinine Est GFR (CKD-EPI)AfAm Est GFR (CKD-EPI)NonAf Random Glucose Lactic Acid Calcium Total Bilirubin AST ALT Alkaline Phosphatase Ammonia Creatine Kinase Troponin I B-Natriuretic Peptide Total Protein Albumin TSH Urine Color Urine Appearance Urine pH Ur Specific [place] Urine Protein Urine Glucose (UA) Urine Ketones Urine Blood Urine Nitrite Urine Bilirubin Urine Urobilinogen Ur Leukocyte Esterase Salicylates Opiates Screen Positive A* Methadone Screen Negative Acetaminophen Barbiturate Screen Negative Phencyclidine Screen Negative Ur Amphetamines Screen Negative MDMA (Ecstasy) Screen Negative Benzodiazepines Screen Positive A* Cocaine Screen Positive A* U Marijuana (THC) Screen Positive A* Alcohol, Quantitative 11/05/19 11/05/19 11/05/19 01:43 00:08 00:08 PT with INR INR PTT (Actin FS) Anticoagulation Therapy Puncture Site Patient Temperature ABG pH ABG pCO2 ABG pO2 ABG HCO3 ABG O2 Sat (Measured) ABG O2 Content ABG Base Excess Lázaro Test Patient On Oxygen O2 Delivery Device Oxygen Flow Rate Vent Mode Vent Rate Mechanical Rate PEEP Pressure Support Vent Sodium 136 Potassium 4.3 Chloride 100 Carbon Dioxide 31 Anion Gap 5 L BUN 20.0 H Creatinine 0.8 Est GFR (CKD-EPI)AfAm 114.13 Est GFR (CKD-EPI)NonAf 98.47 Random Glucose 121 H Lactic Acid Calcium 9.6 Total Bilirubin 0.4 AST 26 ALT 30 Alkaline Phosphatase 141 H Ammonia Creatine Kinase 52 Troponin I < 0.02 B-Natriuretic Peptide Total Protein 9.4 H Albumin 4.1 TSH 3.98 H Urine Color Yellow Urine Appearance Clear Urine pH 5.0 Ur Specific [place] 1.017 Urine Protein Negative Urine Glucose (UA) Negative Urine Ketones Negative Urine Blood Negative Urine Nitrite Negative Urine Bilirubin Negative Urine Urobilinogen 1.0 Ur Leukocyte Esterase Negative Salicylates Opiates Screen Methadone Screen Acetaminophen Barbiturate Screen Phencyclidine Screen Ur Amphetamines Screen MDMA (Ecstasy) Screen Benzodiazepines Screen Cocaine Screen U Marijuana (THC) Screen Alcohol, Quantitative < 3 11/05/19 11/05/19 11/05/19 00:08 00:06 00:05 PT with INR 10.90 INR 0.92 PTT (Actin FS) 38.3 H Anticoagulation Therapy Puncture Site Patient Temperature ABG pH ABG pCO2 ABG pO2 ABG HCO3 ABG O2 Sat (Measured) ABG O2 Content ABG Base Excess Lázaro Test Patient On Oxygen O2 Delivery Device Oxygen Flow Rate Vent Mode Vent Rate Mechanical Rate PEEP Pressure Support Vent Sodium Potassium Chloride Carbon Dioxide Anion Gap BUN Creatinine Est GFR (CKD-EPI)AfAm Est GFR (CKD-EPI)NonAf Random Glucose Lactic Acid 0.7 Calcium Total Bilirubin AST ALT Alkaline Phosphatase Ammonia Creatine Kinase Troponin I B-Natriuretic Peptide 44.1 Total Protein Albumin TSH Urine Color Urine Appearance Urine pH Ur Specific [place] Urine Protein Urine Glucose (UA) Urine Ketones Urine Blood Urine Nitrite Urine Bilirubin Urine Urobilinogen Ur Leukocyte Esterase Salicylates Opiates Screen Methadone Screen Acetaminophen Barbiturate Screen Phencyclidine Screen Ur Amphetamines Screen MDMA (Ecstasy) Screen Benzodiazepines Screen Cocaine Screen U Marijuana (THC) Screen Alcohol, Quantitative 11/05/19 11/05/19 11/05/19 00:05 00:05 00:00 PT with INR INR PTT (Actin FS) Anticoagulation Therapy Puncture Site Patient Temperature ABG pH ABG pCO2 ABG pO2 ABG HCO3 ABG O2 Sat (Measured) ABG O2 Content ABG Base Excess Lázaro Test Patient On Oxygen O2 Delivery Device Oxygen Flow Rate Vent Mode Vent Rate Mechanical Rate PEEP Pressure Support Vent Sodium Potassium Chloride Carbon Dioxide Anion Gap BUN Creatinine Est GFR (CKD-EPI)AfAm Est GFR (CKD-EPI)NonAf Random Glucose Lactic Acid Calcium Total Bilirubin AST ALT Alkaline Phosphatase Ammonia 33.10 H Creatine Kinase Troponin I B-Natriuretic Peptide Total Protein Albumin TSH Urine Color Urine Appearance Urine pH Ur Specific [place] Urine Protein Urine Glucose (UA) Urine Ketones Urine Blood Urine Nitrite Urine Bilirubin Urine Urobilinogen Ur Leukocyte Esterase Salicylates 2.6 L Opiates Screen Methadone Screen Acetaminophen <2.0 Barbiturate Screen Phencyclidine Screen Ur Amphetamines Screen MDMA (Ecstasy) Screen Benzodiazepines Screen Cocaine Screen U Marijuana (THC) Screen Alcohol, Quantitative 11/04/19 23:16 PT with INR INR PTT (Actin FS) Anticoagulation Therapy No Result Required. Puncture Site No Result Required. Patient Temperature No Result Required. ABG pH 7.178 L* ABG pCO2 72.80 H* ABG pO2 104.8 H ABG HCO3 26.4 ABG O2 Sat (Measured) 96.2 ABG O2 Content No Result Required. ABG Base Excess -3.8 L Lázaro Test No Result Required. Patient On Oxygen No Result Required. O2 Delivery Device No Result Required. Oxygen Flow Rate No Result Required. Vent Mode No Result Required. Vent Rate No Result Required. Mechanical Rate No Result Required. PEEP No Result Required. Pressure Support Vent No Result Required. Sodium Potassium Chloride Carbon Dioxide Anion Gap BUN Creatinine Est GFR (CKD-EPI)AfAm Est GFR (CKD-EPI)NonAf Random Glucose Lactic Acid Calcium Total Bilirubin AST ALT Alkaline Phosphatase Ammonia Creatine Kinase Troponin I B-Natriuretic Peptide Total Protein Albumin TSH Urine Color Urine Appearance Urine pH Ur Specific [place] Urine Protein Urine Glucose (UA) Urine Ketones Urine Blood Urine Nitrite Urine Bilirubin Urine Urobilinogen Ur Leukocyte Esterase Salicylates Opiates Screen Methadone Screen Acetaminophen Barbiturate Screen Phencyclidine Screen Ur Amphetamines Screen MDMA (Ecstasy) Screen Benzodiazepines Screen Cocaine Screen U Marijuana (THC) Screen Alcohol, Quantitative 11/05/19 00:00 RBC 6.08 H MCV 81.5 MCHC 28.8 L RDW 22.3 H MPV 10.0 Neutrophils % 44.1 Lymphocytes % 43.1 H Monocytes % 9.5 Eosinophils % 2.9 Basophils % 0.4 - Medications Given in the ED: ED Medications Discontinued Medications Generic Name Dose Route Start Last Admin Trade Name Vani PRN Reason Stop Dose Admin Albuterol/Ipratropium 3 amp 11/05/19 06:38 11/05/19 06:59 Duoneb - NEB 11/05/19 06:39 3 amp ONCE ONE Administration Azithromycin 500 mg/ Dextrose 250 mls @ 250 mls/hr 11/05/19 02:50 11/05/19 03:09 IVPB 11/05/19 03:49 250 mls/hr ONCE ONE Administration Methylprednisolone Sodium Succinate 125 mg 11/05/19 06:39 11/05/19 06:59 Solu-Medrol - IVPUSH 11/05/19 06:40 125 mg ONCE ONE Administration Sodium Chloride 500 ml 11/05/19 01:12 11/05/19 02:57 Normal Saline - IV 11/05/19 01:13 500 ml ONCE ONE Administration Medical Decision Making - Medical Decision Making Pt was signed out to me by resident Dr. Cruz, who explained the presentation, ED course, any pending results, and needed interventions. Pending results include admission to ICU. Pt is currently stable and is improving on bipap. Pt presented with AMS, hypercapnic respiratory distress. Started on BIPAP. UDS positive for opiates, THC, cocaine. Received IV solumedrol, rocephin, azithromycin Trop <.02 with no acute EKG changes. CT head and C-spine showed no acute fractures or bleed. Pt admitted to ICU, pending bed. 11/05/19 07:30 11/05/19 08:08 Pt passed swallow test, able to tolerate breakfast and now speaking in full sentences. Will downgrade to tele Paged admission team 11/05/19 10:39 Discharge - Discharge Information Problems reviewed: Yes Clinical Impression/Diagnosis: Hypercapnic respiratory failure Qualifiers: Chronicity: acute on chronic Qualified Code(s): J96.22 - Acute and chronic respiratory failure with hypercapnia Condition: Stable - Admission Yes - Follow up/Referral - Patient Discharge Instructions - Post Discharge Activity
--- NOTE | 2019-11-05 07:48 | PDOC ---
*Physical Exam - Vital Signs Last Vital Signs Temp Pulse Resp BP Pulse Ox 97.5 F L 83 19 128/76 99 11/05/19 06:43 11/05/19 06:43 11/05/19 06:43 11/05/19 06:43 11/05/19 06:43 - Physical Exam 11/05/19 07:36 on bipap, o2 100%, alert to verbal, answering appopriately and conversant distant wheeze, symmetric breath sounds otherwise abd benign ED Treatment Course - LABORATORY CBC & Chemistry Diagram: 11/05/19 00:00 11/05/19 00:08 - ADDITIONAL ORDERS Additional order review: Laboratory Results 11/05/19 11/05/19 11/05/19 04:45 02:00 01:43 PT with INR INR PTT (Actin FS) Anticoagulation Therapy No Result Required. No Result Required. Puncture Site Right radial Right radial Patient Temperature No Result Required. No Result Required. ABG pH 7.117 L* 7.211 L ABG pCO2 89.20 H* 69.60 H ABG pO2 35.9 L* 104.9 H ABG HCO3 28.2 H 27.3 H ABG O2 Sat (Measured) 49.1 L 96.5 ABG O2 Content No Result Required. No Result Required. ABG Base Excess -3.7 L -2.3 L Lázaro Test Positive Positive Patient On Oxygen Yes Yes O2 Delivery Device Abg Abg Oxygen Flow Rate 40 40% Vent Mode St St Vent Rate 26 22 Mechanical Rate No Result Required. No Result Required. PEEP 6.0 6.0 Pressure Support Vent 18 18/0 Sodium Potassium Chloride Carbon Dioxide Anion Gap BUN Creatinine Est GFR (CKD-EPI)AfAm Est GFR (CKD-EPI)NonAf Random Glucose Lactic Acid Calcium Total Bilirubin AST ALT Alkaline Phosphatase Ammonia Creatine Kinase Troponin I B-Natriuretic Peptide Total Protein Albumin TSH Urine Color Urine Appearance Urine pH Ur Specific [place] Urine Protein Urine Glucose (UA) Urine Ketones Urine Blood Urine Nitrite Urine Bilirubin Urine Urobilinogen Ur Leukocyte Esterase Salicylates Opiates Screen Positive A* Methadone Screen Negative Acetaminophen Barbiturate Screen Negative Phencyclidine Screen Negative Ur Amphetamines Screen Negative MDMA (Ecstasy) Screen Negative Benzodiazepines Screen Positive A* Cocaine Screen Positive A* U Marijuana (THC) Screen Positive A* Alcohol, Quantitative 11/05/19 11/05/19 11/05/19 01:43 00:08 00:08 PT with INR INR PTT (Actin FS) Anticoagulation Therapy Puncture Site Patient Temperature ABG pH ABG pCO2 ABG pO2 ABG HCO3 ABG O2 Sat (Measured) ABG O2 Content ABG Base Excess Lázaro Test Patient On Oxygen O2 Delivery Device Oxygen Flow Rate Vent Mode Vent Rate Mechanical Rate PEEP Pressure Support Vent Sodium 136 Potassium 4.3 Chloride 100 Carbon Dioxide 31 Anion Gap 5 L BUN 20.0 H Creatinine 0.8 Est GFR (CKD-EPI)AfAm 114.13 Est GFR (CKD-EPI)NonAf 98.47 Random Glucose 121 H Lactic Acid Calcium 9.6 Total Bilirubin 0.4 AST 26 ALT 30 Alkaline Phosphatase 141 H Ammonia Creatine Kinase 52 Troponin I < 0.02 B-Natriuretic Peptide Total Protein 9.4 H Albumin 4.1 TSH 3.98 H Urine Color Yellow Urine Appearance Clear Urine pH 5.0 Ur Specific [place] 1.017 Urine Protein Negative Urine Glucose (UA) Negative Urine Ketones Negative Urine Blood Negative Urine Nitrite Negative Urine Bilirubin Negative Urine Urobilinogen 1.0 Ur Leukocyte Esterase Negative Salicylates Opiates Screen Methadone Screen Acetaminophen Barbiturate Screen Phencyclidine Screen Ur Amphetamines Screen MDMA (Ecstasy) Screen Benzodiazepines Screen Cocaine Screen U Marijuana (THC) Screen Alcohol, Quantitative < 3 11/05/19 11/05/19 11/05/19 00:08 00:06 00:05 PT with INR 10.90 INR 0.92 PTT (Actin FS) 38.3 H Anticoagulation Therapy Puncture Site Patient Temperature ABG pH ABG pCO2 ABG pO2 ABG HCO3 ABG O2 Sat (Measured) ABG O2 Content ABG Base Excess Lázaro Test Patient On Oxygen O2 Delivery Device Oxygen Flow Rate Vent Mode Vent Rate Mechanical Rate PEEP Pressure Support Vent Sodium Potassium Chloride Carbon Dioxide Anion Gap BUN Creatinine Est GFR (CKD-EPI)AfAm Est GFR (CKD-EPI)NonAf Random Glucose Lactic Acid 0.7 Calcium Total Bilirubin AST ALT Alkaline Phosphatase Ammonia Creatine Kinase Troponin I B-Natriuretic Peptide 44.1 Total Protein Albumin TSH Urine Color Urine Appearance Urine pH Ur Specific [place] Urine Protein Urine Glucose (UA) Urine Ketones Urine Blood Urine Nitrite Urine Bilirubin Urine Urobilinogen Ur Leukocyte Esterase Salicylates Opiates Screen Methadone Screen Acetaminophen Barbiturate Screen Phencyclidine Screen Ur Amphetamines Screen MDMA (Ecstasy) Screen Benzodiazepines Screen Cocaine Screen U Marijuana (THC) Screen Alcohol, Quantitative 11/05/19 11/05/1920 00:05 00:05 00:00 PT with INR INR PTT (Actin FS) Anticoagulation Therapy Puncture Site Patient Temperature ABG pH ABG pCO2 ABG pO2 ABG HCO3 ABG O2 Sat (Measured) ABG O2 Content ABG Base Excess Lázaro Test Patient On Oxygen O2 Delivery Device Oxygen Flow Rate Vent Mode Vent Rate Mechanical Rate PEEP Pressure Support Vent Sodium Potassium Chloride Carbon Dioxide Anion Gap BUN Creatinine Est GFR (CKD-EPI)AfAm Est GFR (CKD-EPI)NonAf Random Glucose Lactic Acid Calcium Total Bilirubin AST ALT Alkaline Phosphatase Ammonia 33.10 H Creatine Kinase Troponin I B-Natriuretic Peptide Total Protein Albumin TSH Urine Color Urine Appearance Urine pH Ur Specific [place] Urine Protein Urine Glucose (UA) Urine Ketones Urine Blood Urine Nitrite Urine Bilirubin Urine Urobilinogen Ur Leukocyte Esterase Salicylates 2.6 L Opiates Screen Methadone Screen Acetaminophen <2.0 Barbiturate Screen Phencyclidine Screen Ur Amphetamines Screen MDMA (Ecstasy) Screen Benzodiazepines Screen Cocaine Screen U Marijuana (THC) Screen Alcohol, Quantitative 11/04/19 23:16 PT with INR INR PTT (Actin FS) Anticoagulation Therapy No Result Required. Puncture Site No Result Required. Patient Temperature No Result Required. ABG pH 7.178 L* ABG pCO2 72.80 H* ABG pO2 104.8 H ABG HCO3 26.4 ABG O2 Sat (Measured) 96.2 ABG O2 Content No Result Required. ABG Base Excess -3.8 L Lázaro Test No Result Required. Patient On Oxygen No Result Required. O2 Delivery Device No Result Required. Oxygen Flow Rate No Result Required. Vent Mode No Result Required. Vent Rate No Result Required. Mechanical Rate No Result Required. PEEP No Result Required. Pressure Support Vent No Result Required. Sodium Potassium Chloride Carbon Dioxide Anion Gap BUN Creatinine Est GFR (CKD-EPI)AfAm Est GFR (CKD-EPI)NonAf Random Glucose Lactic Acid Calcium Total Bilirubin AST ALT Alkaline Phosphatase Ammonia Creatine Kinase Troponin I B-Natriuretic Peptide Total Protein Albumin TSH Urine Color Urine Appearance Urine pH Ur Specific [place] Urine Protein Urine Glucose (UA) Urine Ketones Urine Blood Urine Nitrite Urine Bilirubin Urine Urobilinogen Ur Leukocyte Esterase Salicylates Opiates Screen Methadone Screen Acetaminophen Barbiturate Screen Phencyclidine Screen Ur Amphetamines Screen MDMA (Ecstasy) Screen Benzodiazepines Screen Cocaine Screen U Marijuana (THC) Screen Alcohol, Quantitative 11/05/19 00:00 RBC 6.08 H MCV 81.5 MCHC 28.8 L RDW 22.3 H MPV 10.0 Neutrophils % 44.1 Lymphocytes % 43.1 H Monocytes % 9.5 Eosinophils % 2.9 Basophils % 0.4 - Medications Given in the ED: ED Medications Discontinued Medications Generic Name Dose Route Start Last Admin Trade Name Vani PRN Reason Stop Dose Admin Albuterol/Ipratropium 3 amp 11/05/19 06:38 11/05/19 06:59 Duoneb - NEB 11/05/19 06:39 3 amp ONCE ONE Administration Azithromycin 500 mg/ Dextrose 250 mls @ 250 mls/hr 11/05/19 02:50 11/05/19 03:09 IVPB 11/05/19 03:49 250 mls/hr ONCE ONE Administration Methylprednisolone Sodium Succinate 125 mg 11/05/19 06:39 11/05/19 06:59 Solu-Medrol - IVPUSH 11/05/19 06:40 125 mg ONCE ONE Administration Sodium Chloride 500 ml 11/05/19 01:12 11/05/19 02:57 Normal Saline - IV 11/05/19 01:13 500 ml ONCE ONE Administration Medical Decision Making - Medical Decision Making 11/05/19 07:37 received signout on this pt, 59y/o copd v. chf, on bipap for hypercarbic respiratory failure, given nebs, steroids, abx. + polysubstance use on Utox. unclear COPD v. drug-induced hypoventilation? abg 7.2/70 with improving mental status on bipap. pt refusing repeat ABG this morning. no indication for narcan at this time. accepted to ICU, awaiting bed. discussed intubation, pt agrees if necessary. will involve case management - pt initially refusing admission because he's undomiciled and his belongings aren't secured. He does have an outside geriatric case manager, will attempt to contact our CM. close monitoring, proceed with icu admission. 11/05/19 10:34 passed trial off bipap, o2 97%, alert and breathing comfortably. will admit to tele from icu, team made aware. Discharge - Discharge Information Problems reviewed: Yes Clinical Impression/Diagnosis: Hypercapnic respiratory failure Qualifiers: Chronicity: acute on chronic Qualified Code(s): J96.22 - Acute and chronic respiratory failure with hypercapnia Condition: Fair - Follow up/Referral - Patient Discharge Instructions - Post Discharge Activity
[2019-11-05] MEDS ORDERED: ENOXAPARIN NA (PORCINE) 40 MG/0.4 ML DISP.SYRIN SQ ONE (09:25)
[2019-11-05] MEDS: ENOXAPARIN NA (PORCINE) 40 MG/0.4 ML DISP.SYRIN SQ SCH (10:15)
--- NOTE | 2019-11-05 11:55 | PN ---
Physical Exam: SUBJECTIVE: Patient seen and examined at bedside. pt states that "he feels amazing" and has no current complaints. pt explained that he does not remember yesterdays events but knows it happened after he ate dinner. he states that his friend found him on his knees, not able to verbally respond. he states that this has never happened to him before. denies any prior intubations. denies requiring bipap in the past. does endorse smoking 5 cigarettes /day. endorses marijuana use. states that he used heroin but quit 1 year ago. He is undomiciled and is upset about his current living situation. denies any suicidal ideation. During exam, keeps closing eyes- but still responds to questions when prompted. Pt is unsure of medications names and why he takes. he denies HF. but states that he does take medication to sleep and for his mood. States he is compliant with medications. OBJECTIVE: Vital Signs Period Temp Pulse Resp BP Sys/Bell Pulse Ox Last 24 Hr 97.3 F-97.5 F 83-99 16-26 102-128/66-83 97-100 GENERAL: The patient is awake, alert, and fully oriented, in no acute distress. HEAD: Normal with no signs of trauma. EYES: PERRL, extraocular movements intact ENT: oropharynx clear without exudates, moist mucous membranes. NECK: Trachea midline, full range of motion, supple. LUNGS: Breath sounds equal, decreased at bases b/l, no wheezes no accessory muscle use. on 3 L NC HEART: Regular rate and rhythm, S1, S2 without murmur ABDOMEN: Soft, nontender, nondistended, normoactive bowel sounds, no guarding, no rebound EXTREMITIES: 2+ pulses, warm, well-perfused, no edema. dry skin , onchymycosis NEUROLOGICAL: Cranial nerves II through XII grossly intact. Normal speech PSYCH: sad mood. Laboratory Last Values WBC 6.1 K/mm3 (4.0-10.0) 11/05/19 00:00 RBC 6.08 M/mm3 (4.00-5.60) H 11/05/19 00:00 Hgb 14.3 GM/dL (11.7-16.9) 11/05/19 00:00 Hct 49.5 % (35.4-49) H 11/05/19 00:00 MCV 81.5 fl (80-96) 11/05/19 00:00 MCH 23.5 pg (25.7-33.7) L 11/05/19 00:00 MCHC 28.8 g/dl (32.0-35.9) L 11/05/19 00:00 RDW 22.3 % (11.9-15.9) H 11/05/19 00:00 Plt Count 183 K/MM3 (134-434) 11/05/19 00:00 MPV 10.0 fl (7.5-11.1) 11/05/19 00:00 Absolute Neuts (auto) 2.7 K/mm3 (1.5-8.0) 11/05/19 00:00 Neutrophils % 44.1 % (42.8-82.8) 11/05/19 00:00 Lymphocytes % 43.1 % (8-40) H 11/05/19 00:00 Monocytes % 9.5 % (3.8-10.2) 11/05/19 00:00 Eosinophils % 2.9 % (0-4.5) 11/05/19 00:00 Basophils % 0.4 % (0-2.0) 11/05/19 00:00 Nucleated RBC % 0 % (0-0) 11/05/19 00:00 Platelet Estimate Adequate 11/05/19 00:00 Anisocytosis 2+ 11/05/19 00:00 Macrocytosis 1+ 11/05/19 00:00 PT with INR 10.90 SEC (9.7-13.0) 11/05/19 00:08 INR 0.92 (0.83-1.09) 11/05/19 00:08 PTT (Actin FS) 38.3 SECONDS (25.2-36.5) H 11/05/19 00:08 Anticoagulation Therapy No Result Required. 11/05/19 04:45 Puncture Site Right radial 11/05/19 04:45 Patient Temperature No Result Required. 11/05/19 04:45 ABG pH 7.117 (7.350-7.450) L* 11/05/19 04:45 ABG pCO2 89.20 mmHg (35-45) H* 11/05/19 04:45 ABG pO2 35.9 mmHg (80-100) L* 11/05/19 04:45 ABG HCO3 28.2 mmol/L (22-27) H 11/05/19 04:45 ABG O2 Sat (Measured) 49.1 mmHg (95-98) L 11/05/19 04:45 ABG O2 Content No Result Required. 11/05/19 04:45 ABG Base Excess -3.7 mmol/L (-2-2) L 11/05/19 04:45 Lázaro Test Positive 11/05/19 04:45 Patient On Oxygen Yes 11/05/19 04:45 O2 Delivery Device Abg 11/05/19 04:45 Oxygen Flow Rate 40 11/05/19 04:[address] 11/05/19 04:45 Vent Rate 26 11/05/19 04:45 Mechanical Rate No Result Required. 11/05/19 04:45 PEEP 6.0 cmH2O 11/05/19 04:45 Pressure Support Vent 18 11/05/19 04:45 Sodium 136 mmol/L (136-145) 11/05/19 00:08 Potassium 4.3 mmol/L (3.5-5.1) 11/05/19 00:08 Chloride 100 mmol/L (98-107) 11/05/19 00:08 Carbon Dioxide 31 mmol/L (21-32) 11/05/19 00:08 Anion Gap 5 MMOL/L (8-16) L 11/05/19 00:08 BUN 20.0 mg/dL (7-18) H 11/05/19 00:08 Creatinine 0.8 mg/dL (0.55-1.3) 11/05/19 00:08 Est GFR (CKD-EPI)AfAm 114.13 11/05/19 00:08 Est GFR (CKD-EPI)NonAf 98.47 11/05/19 00:08 Random Glucose 121 mg/dL (74-106) H 11/05/19 00:08 Lactic Acid 0.7 mmol/L (0.4-2.0) 11/05/19 00:06 Calcium 9.6 mg/dL (8.5-10.1) 11/05/19 00:08 Total Bilirubin 0.4 mg/dL (0.2-1) 11/05/19 00:08 AST 26 U/L (15-37) 11/05/19 00:08 ALT 30 U/L (13-61) 11/05/19 00:08 Alkaline Phosphatase 141 U/L (45-117) H 11/05/19 00:08 Ammonia 33.10 umol/L (11-32) H 11/05/19 00:00 Creatine Kinase 52 U/L (26-308) 11/05/19 00:08 Troponin I < 0.02 ng/ml (0.00-0.05) 11/05/19 00:08 B-Natriuretic Peptide 44.1 pg/ml (5-125) 11/05/19 00:05 Total Protein 9.4 g/dl (6.4-8.2) H 11/05/19 00:08 Albumin 4.1 g/dl (3.4-5.0) 11/05/19 00:08 TSH 3.98 uIU/ml (0.358-3.74) H 11/05/19 00:08 Urine Color Yellow 11/05/19 01:43 Urine Appearance Clear 11/05/19 01:43 Urine pH 5.0 (5.0-8.0) 11/05/19 01:43 Ur Specific [place] 1.017 (1.010-1.035) 11/05/19 01:43 Urine Protein Negative (NEGATIVE) 11/05/19 01:43 Urine Glucose (UA) Negative (NEGATIVE) 11/05/19 01:43 Urine Ketones Negative (NEGATIVE) 11/05/19 01:43 Urine Blood Negative (NEGATIVE) 11/05/19 01:43 Urine Nitrite Negative (NEGATIVE) 11/05/19 01:43 Urine Bilirubin Negative (NEGATIVE) 11/05/19 01:43 Urine Urobilinogen 1.0 mg/dL (0.2-1.0) 11/05/19 01:43 Ur Leukocyte Esterase Negative (NEGATIVE) 11/05/19 01:43 Salicylates 2.6 mg/dL (2.8-20) L 11/05/19 00:05 Opiates Screen Positive ng/ml (CVFTFQ=571) A* 11/05/19 01:43 Methadone Screen Negative ng/ml (SZESWU=323) 11/05/19 01:43 Acetaminophen <2.0 ug/ml 11/05/19 00:05 Barbiturate Screen Negative ng/ml (NMECIY=753) 11/05/19 01:43 Phencyclidine Screen Negative ng/ml (CUTOFF=25) 11/05/19 01:43 Ur Amphetamines Screen Negative ng/ml (KINUGC=291) 11/05/19 01:43 MDMA (Ecstasy) Screen Negative ng/ml (ITMACD=573) 11/05/19 01:43 Benzodiazepines Screen Positive ng/ml (VPORAR=276) A* 11/05/19 01:43 Cocaine Screen Positive ng/ml (JGXKDB=519) A* 11/05/19 01:43 U Marijuana (THC) Screen Positive ng/ml (CUTOFF=50) A* 11/05/19 01:43 Alcohol, Quantitative < 3 mg/dL (0.0-5.0) 11/05/19 00:08 Current Medications Generic Name Dose Route Start Last Admin Trade Name Freq PRN Reason Stop Dose Admin Albuterol/Ipratropium 1 amp 11/05/19 16:00 Duoneb - NEB RQID [facility] Aripiprazole 10 mg 11/05/19 22:00 Abilify PO HS [facility] Chlorhexidine Gluconate 1 applic 11/05/19 22:00 Hibiclens For Decolonization - TP HS [facility] Enoxaparin Sodium 40 mg 11/05/19 10:00 11/05/19 10:15 Lovenox - SQ 40 mg DAILY [facility] Administration Ferrous Sulfate 325 mg 11/06/19 10:00 Feosol - PO DAILY [facility] Furosemide 40 mg 11/06/19 10:00 Lasix - PO DAILY [facility] Azithromycin 250 mg/ Dextrose 250 mls @ 250 mls/hr 11/06/19 10:00 IVPB DAILY [facility] Ceftriaxone Sodium 1 gm/ 50 mls @ 100 mls/hr 11/06/19 10:00 Dextrose IVPB DAILY [facility] Insulin Aspart 1 vial 11/05/19 16:30 Novolog Vial Sliding Scale - SQ ACHS [facility] Protocol Mupirocin 1 applic 11/05/19 10:00 Bactroban Ointment (For Decolonization) - NS 11/10/19 09:59 BID [facility] Prazosin HCl 2 mg 11/05/19 22:00 Minipress - PO HS [facility] Prednisone 40 mg 11/05/19 22:00 Deltasone - PO BID [facility] ASSESSMENT/PLAN: 59 yo M PMH questionable CHF, COPD/ asthma presents to ED for lethargy and hypox ia. Pt was tried on Bipap and saturations improved. pt was monitored by ICU overnight, and is now stable for transfer to tele as he is saturating well on 3 L NC O2. Pt is admitted for acute hypercapneic hypoxic respiratory failure Acute hypoxic hypercapneic respiratory failure - 2/2 drug intoxication vs COPD - UTox positive for opiate, BZO, cocaine, Marijuana - CXR reviewed, possible infiltrates - BCx pending . no leukocytosis. no febrile events. - improved on BiPAP. ABGs reviewed. will get repeat ABG while on NC. - titrate O2 as tolerated but maintain O2 > 94% - Pulm consulted - will give Solumedrol 40 mg BID x 3 days - duonebs/ ventolin -c/w ceftriaxone , azithro - covid 19 pending - cont tele monitoring DM - will get A1C - hold metformin - ISS/ BGM Psych - c/w prazosin , abilify abnormal TSH - will get T3 F/E/N - monitor lytes - on liquids, speech and swallow eval requested before advancing DVT ppx: lovenox Meds reconciled from [facility] Dispo: transfer to tele ATTENDING PHYSICIAN STATEMENT I saw and evaluated the patient. I reviewed the resident's note and discussed the case with the resident. I agree with the resident's findings and plan as documented. SUBJECTIVE: OBJECTIVE: ASSESSMENT AND PLAN:
--- NOTE | 2019-11-05 12:03 | EKG ---
Test Reason : Blood Pressure : / mmHG Vent. Rate : 094 BPM Atrial Rate : 094 BPM P-R Int : 184 ms QRS Dur : 074 ms QT Int : 354 ms P-R-T Axes : 049 261 047 degrees QTc Int : 442 ms NORMAL SINUS RHYTHM POSSIBLE LEFT ATRIAL ENLARGEMENT RIGHT SUPERIOR AXIS DEVIATION ABNORMAL ECG NO PREVIOUS ECGS AVAILABLE Confirmed by MD William, Jose ([id number]) on 11/05/2019 12:03:06 PM Referred By: Confirmed By:Jose Thomas MD
--- NOTE | 2019-11-05 12:57 | PN ---
Teaching Attending Note Name of Resident: Shena Tompkins ATTENDING PHYSICIAN STATEMENT I saw and evaluated the patient. I reviewed the resident's note and discussed the case with the resident. I agree with the resident's findings and plan as documented. SUBJECTIVE: 59 M, COPD due to active smoking and possible history of CHF. Admitted via the ER after being found lethargic and short of breath by a coworker. Apparently his O2 saturation was only 70's in the field, which improved to 90% on 5L NC. He was placed on NIPPV support for continued lethargy and severe hypercapneic respiratory failure with improvement in his clinical condition. He reports being at [facility] twice in the last few weeks for possible sepsis. Denies travel history or sick contacts. UTox : Opiates / Benzo / MJ / Cocaine CXR: cardiomegaly, mildly increased bilateral interstitial markings, atelectasis vs scarring RLL, shrapnel in right lower chest Intake & Output 11/02/19 11/03/19 11/04/19 11/05/19 23:59 23:59 23:59 23:59 Intake Total 851 Output Total 600 Balance 251 Weight 215 lb Last Vital Signs Temp Pulse Resp BP Pulse Ox 97.5 F L 89 16 128/83 98 11/05/19 06:43 11/05/19 10:00 11/05/19 10:00 11/05/19 10:00 11/05/19 10:00 Active Medications Albuterol/Ipratropium (Duoneb -) 1 amp NEB RQID [facility] Aripiprazole (Abilify) 10 mg PO HS [facility] Chlorhexidine Gluconate (Hibiclens For Decolonization -) 1 applic TP HS [facility] Enoxaparin Sodium (Lovenox -) 40 mg SQ DAILY [facility] Last Admin: 11/05/19 10:15 Dose: 40 mg Documented by: Ferrous Sulfate (Feosol -) 325 mg PO DAILY [facility] Furosemide (Lasix -) 40 mg PO DAILY [facility] Azithromycin 250 mg/ Dextrose 250 mls @ 250 mls/hr IVPB DAILY [facility] Ceftriaxone Sodium 1 gm/ (Dextrose) 50 mls @ 100 mls/hr IVPB DAILY [facility] Insulin Aspart (Novolog Vial Sliding Scale -) 1 vial SQ ACHS [facility]; Protocol Mupirocin (Bactroban Ointment (For Decolonization) -) 1 applic NS BID [facility] Stop: 11/10/19 09:59 Prazosin HCl (Minipress -) 2 mg PO HS [facility] Prednisone (Deltasone -) 40 mg PO BID [facility] GENERAL: Drowsy but easily arousable and conversant HEAD: Normal with no signs of trauma. EYES: Pupils equal, round and reactive to light, conjunctiva clear. EARS, NOSE, THROAT: Ears normal, nares patent, moist mucous membranes. NECK: Normal range of motion. LUNGS: Diminished at the bases, Scattered wheeze HEART: S1S2, regular rhythm, no murmur appreciated. ABDOMEN: Soft, nontender, not distended, normoactive bowel sounds. UPPER EXTREMITIES: Warm, well-perfused. No peripheral edema. LOWER EXTREMITIES: Warm, well-perfused. +1 pitting edema b/l to mid shins. Flaking skin plantar surfaces of feet, onychomycosis. NEUROLOGICAL: Non-focal PSYCHIATRIC: Drowsy, Cooperative. SKIN: Warm, dry, normal turgor. Laboratory Results - last 24 hr 11/04/19 11/05/19 11/05/19 23:16 00:00 00:00 WBC 6.1 RBC 6.08 H Hgb 14.3 Hct 49.5 H MCV 81.5 MCH 23.5 L MCHC 28.8 L RDW 22.3 H Plt Count 183 MPV 10.0 Absolute Neuts (auto) 2.7 Neutrophils % 44.1 Lymphocytes % 43.1 H Monocytes % 9.5 Eosinophils % 2.9 Basophils % 0.4 Nucleated RBC % 0 Platelet Estimate Adequate Anisocytosis 2+ Macrocytosis 1+ PT with INR INR PTT (Actin FS) Anticoagulation Therapy No Result Required. Puncture Site No Result Required. Patient Temperature No Result Required. ABG pH 7.178 L* ABG pCO2 72.80 H* ABG pO2 104.8 H ABG HCO3 26.4 ABG O2 Sat (Measured) 96.2 ABG O2 Content No Result Required. ABG Base Excess -3.8 L Lázaro Test No Result Required. Patient On Oxygen No Result Required. O2 Delivery Device No Result Required. Oxygen Flow Rate No Result Required. Vent Mode No Result Required. Vent Rate No Result Required. Mechanical Rate No Result Required. PEEP No Result Required. Pressure Support Vent No Result Required. Sodium Potassium Chloride Carbon Dioxide Anion Gap BUN Creatinine Est GFR (CKD-EPI)AfAm Est GFR (CKD-EPI)NonAf Random Glucose Lactic Acid Calcium Total Bilirubin AST ALT Alkaline Phosphatase Ammonia 33.10 H Creatine Kinase Troponin I B-Natriuretic Peptide Total Protein Albumin TSH Urine Color Urine Appearance Urine pH Ur Specific [place] Urine Protein Urine Glucose (UA) Urine Ketones Urine Blood Urine Nitrite Urine Bilirubin Urine Urobilinogen Ur Leukocyte Esterase Salicylates Opiates Screen Methadone Screen Acetaminophen Barbiturate Screen Phencyclidine Screen Ur Amphetamines Screen MDMA (Ecstasy) Screen Benzodiazepines Screen Cocaine Screen U Marijuana (THC) Screen Alcohol, Quantitative 11/05/19 11/05/19 11/05/19 00:05 00:05 00:05 WBC RBC Hgb Hct MCV MCH MCHC RDW Plt Count MPV Absolute Neuts (auto) Neutrophils % Lymphocytes % Monocytes % Eosinophils % Basophils % Nucleated RBC % Platelet Estimate Anisocytosis Macrocytosis PT with INR INR PTT (Actin FS) Anticoagulation Therapy Puncture Site Patient Temperature ABG pH ABG pCO2 ABG pO2 ABG HCO3 ABG O2 Sat (Measured) ABG O2 Content ABG Base Excess Lázaro Test Patient On Oxygen O2 Delivery Device Oxygen Flow Rate Vent Mode Vent Rate Mechanical Rate PEEP Pressure Support Vent Sodium Potassium Chloride Carbon Dioxide Anion Gap BUN Creatinine Est GFR (CKD-EPI)AfAm Est GFR (CKD-EPI)NonAf Random Glucose Lactic Acid Calcium Total Bilirubin AST ALT Alkaline Phosphatase Ammonia Creatine Kinase Troponin I B-Natriuretic Peptide 44.1 Total Protein Albumin TSH Urine Color Urine Appearance Urine pH Ur Specific [place] Urine Protein Urine Glucose (UA) Urine Ketones Urine Blood Urine Nitrite Urine Bilirubin Urine Urobilinogen Ur Leukocyte Esterase Salicylates 2.6 L Opiates Screen Methadone Screen Acetaminophen <2.0 Barbiturate Screen Phencyclidine Screen Ur Amphetamines Screen MDMA (Ecstasy) Screen Benzodiazepines Screen Cocaine Screen U Marijuana (THC) Screen Alcohol, Quantitative 11/05/19 11/05/19 11/05/19 00:06 00:08 00:08 WBC RBC Hgb Hct MCV MCH MCHC RDW Plt Count MPV Absolute Neuts (auto) Neutrophils % Lymphocytes % Monocytes % Eosinophils % Basophils % Nucleated RBC % Platelet Estimate Anisocytosis Macrocytosis PT with INR 10.90 INR 0.92 PTT (Actin FS) 38.3 H Anticoagulation Therapy Puncture Site Patient Temperature ABG pH ABG pCO2 ABG pO2 ABG HCO3 ABG O2 Sat (Measured) ABG O2 Content ABG Base Excess Lázaro Test Patient On Oxygen O2 Delivery Device Oxygen Flow Rate Vent Mode Vent Rate Mechanical Rate PEEP Pressure Support Vent Sodium 136 Potassium 4.3 Chloride 100 Carbon Dioxide 31 Anion Gap 5 L BUN 20.0 H Creatinine 0.8 Est GFR (CKD-EPI)AfAm 114.13 Est GFR (CKD-EPI)NonAf 98.47 Random Glucose 121 H Lactic Acid 0.7 Calcium 9.6 Total Bilirubin 0.4 AST 26 ALT 30 Alkaline Phosphatase 141 H Ammonia Creatine Kinase 52 Troponin I < 0.02 B-Natriuretic Peptide Total Protein 9.4 H Albumin 4.1 TSH 3.98 H Urine Color Urine Appearance Urine pH Ur Specific [place] Urine Protein Urine Glucose (UA) Urine Ketones Urine Blood Urine Nitrite Urine Bilirubin Urine Urobilinogen Ur Leukocyte Esterase Salicylates Opiates Screen Methadone Screen Acetaminophen Barbiturate Screen Phencyclidine Screen Ur Amphetamines Screen MDMA (Ecstasy) Screen Benzodiazepines Screen Cocaine Screen U Marijuana (THC) Screen Alcohol, Quantitative 11/05/19 11/05/19 11/05/19 00:08 01:43 01:43 WBC RBC Hgb Hct MCV MCH MCHC RDW Plt Count MPV Absolute Neuts (auto) Neutrophils % Lymphocytes % Monocytes % Eosinophils % Basophils % Nucleated RBC % Platelet Estimate Anisocytosis Macrocytosis PT with INR INR PTT (Actin FS) Anticoagulation Therapy Puncture Site Patient Temperature ABG pH ABG pCO2 ABG pO2 ABG HCO3 ABG O2 Sat (Measured) ABG O2 Content ABG Base Excess Lázaro Test Patient On Oxygen O2 Delivery Device Oxygen Flow Rate Vent Mode Vent Rate Mechanical Rate PEEP Pressure Support Vent Sodium Potassium Chloride Carbon Dioxide Anion Gap BUN Creatinine Est GFR (CKD-EPI)AfAm Est GFR (CKD-EPI)NonAf Random Glucose Lactic Acid Calcium Total Bilirubin AST ALT Alkaline Phosphatase Ammonia Creatine Kinase Troponin I B-Natriuretic Peptide Total Protein Albumin TSH Urine Color Yellow Urine Appearance Clear Urine pH 5.0 Ur Specific [place] 1.017 Urine Protein Negative Urine Glucose (UA) Negative Urine Ketones Negative Urine Blood Negative Urine Nitrite Negative Urine Bilirubin Negative Urine Urobilinogen 1.0 Ur Leukocyte Esterase Negative Salicylates Opiates Screen Positive A* Methadone Screen Negative Acetaminophen Barbiturate Screen Negative Phencyclidine Screen Negative Ur Amphetamines Screen Negative MDMA (Ecstasy) Screen Negative Benzodiazepines Screen Positive A* Cocaine Screen Positive A* U Marijuana (THC) Screen Positive A* Alcohol, Quantitative < 3 11/05/19 11/05/19 02:00 04:45 WBC RBC Hgb Hct MCV MCH MCHC RDW Plt Count MPV Absolute Neuts (auto) Neutrophils % Lymphocytes % Monocytes % Eosinophils % Basophils % Nucleated RBC % Platelet Estimate Anisocytosis Macrocytosis PT with INR INR PTT (Actin FS) Anticoagulation Therapy No Result Required. No Result Required. Puncture Site Right radial Right radial Patient Temperature No Result Required. No Result Required. ABG pH 7.211 L 7.117 L* ABG pCO2 69.60 H 89.20 H* ABG pO2 104.9 H 35.9 L* ABG HCO3 27.3 H 28.2 H ABG O2 Sat (Measured) 96.5 49.1 L ABG O2 Content No Result Required. No Result Required. ABG Base Excess -2.3 L -3.7 L Lázaro Test Positive Positive Patient On Oxygen Yes Yes O2 Delivery Device Abg Abg Oxygen Flow Rate 40% [address] Vent Rate 22 26 Mechanical Rate No Result Required. No Result Required. PEEP 6.0 6.0 Pressure Support Vent 18/0 18 Sodium Potassium Chloride Carbon Dioxide Anion Gap BUN Creatinine Est GFR (CKD-EPI)AfAm Est GFR (CKD-EPI)NonAf Random Glucose Lactic Acid Calcium Total Bilirubin AST ALT Alkaline Phosphatase Ammonia Creatine Kinase Troponin I B-Natriuretic Peptide Total Protein Albumin TSH Urine Color Urine Appearance Urine pH Ur Specific [place] Urine Protein Urine Glucose (UA) Urine Ketones Urine Blood Urine Nitrite Urine Bilirubin Urine Urobilinogen Ur Leukocyte Esterase Salicylates Opiates Screen Methadone Screen Acetaminophen Barbiturate Screen Phencyclidine Screen Ur Amphetamines Screen MDMA (Ecstasy) Screen Benzodiazepines Screen Cocaine Screen U Marijuana (THC) Screen Alcohol, Quantitative ASSESSMENT/PLAN: Acute on chronic hypercapneic and hypoxic respiratory failure : Improved with NIPPV support (complicated by drug intoxication). AE of COPD R/O PNA Substance abuse disorder R/O CHF history R/O COVID19 infection R/O OSAS NC O2 as needed : would repeat ABG on NC to document improvement in hypercapnea NIPPV at bedside as needed If capable, End Tidal CO2 monitoring on Cardiac Telemetry Sleep Screen Aspiration precautions Short course of IV steroids BD TX No smoking was counseled Outpatient PFTs once stable Low threshold to DC ABX if cultures are negative No indication for ICU monitoring at this time Will follow Thank you. Dr Cano
--- NOTE | 2019-11-05 13:17 | PN ---
NAZ Screen - NAZ History Previously diagnosed with Sleep Apnea: No If Yes, currently using CPAP to treat your NAZ: No - SNORING Do you snore loudly (enough to be heard thru closed doors)?: Yes - TIRED Do you often feel tired, fatigued, or sleepy during daytime?: Yes - OBSERVED Has anyone observed you stop breathing during your sleep?: Yes - BLOOD PRESSURE Do you have or are being treated for high blood pressure?: Yes - BMI Answer Y if weight exceeds amount listed for your height: Yes .: HEIGHT & WEIGHT (lbs): 4'10" 167lbs; 4" 175 lbs; 5'0" 179lbs;. 5'1" 185lbs; 5'2" 191lbs; 5'3" 197lbs;. 5'4" 204lbs; 5'5" 210lbs; 56" 216lbs;. 5'7" 223lbs; 58" 230lbs; 59" 237lbs;. 510" 243lbs; 11" 250lbs; 6' 258lbs;. 6'1" 265lbs; 6'2" 272lbs; 6'3" 279lbs;. 6'4" 287lbs; 6'5" 295lbs - AGE Is your age over 50 yrs old?: Yes - NECK CIRCUMFERENCE Neck Circumference 40cm: Yes - GENDER Male: Yes - SCORE Total Score: 8 Score Interpretation: High Risk of NAZ .: Interpretation: Score 0-2: Low Risk NAZ. Score 3-4: Intermediate Risk NAZ. Score 5-8: High Risk NAZ
[2019-11-05] MEDS: ALBUTEROL SO4 2.5/IPRATROPIUM 0.5 INH SOL 3 ML VIAL.NEB. NEB SCH (16:21)
[2019-11-05] MEDS: INSULIN SLIDING SCALE (NOVOLOG) 1 VIAL SQ SCH ×2 (17:21→22:15)
--- NOTE | 2019-11-05 17:30 | PN ---
Teaching Attending Note Name of Resident: Rosemarie Up ATTENDING PHYSICIAN STATEMENT I saw and evaluated the patient. I reviewed the resident's note and discussed the case with the resident. I agree with the resident's findings and plan as documented. SUBJECTIVE: 59 year old male with history of COPD, polysubstance abuse, undomiciled, a dmitted for hypercarbic respiratory failure. He was briefly on bilevel positive pressure airway ventilation with improvement in breathing as well as mentation. OBJECTIVE: Agree with objective findings as detailed by Dr Up. ASSESSMENT AND PLAN: Acute hypercarbic respiratory failure, improved after bipap - cont close observation - cont with short course of antibiotic therapy - other management as detailed in Dr Up's noted
[2019-11-05] MEDS ORDERED: PT OWN MED DRAWER 7, Y5N ONE (21:27)
[2019-11-05] MEDS ORDERED: PRAZOSIN HCL 2 MG CAPSULE PO SCH (22:00)
[2019-11-05] MEDS ORDERED: CHLORHEXIDINE GLUCONATE 4% CLEANSER FOR DECOLONIZATION TP SCH (22:00)
[2019-11-05] MEDS ORDERED: predniSONE 20 MG TABLET (UD) PO SCH (22:00)
[2019-11-05] MEDS: ARIPiprazole 10 MG TABLET PO SCH (22:14)
[2019-11-05] MEDS: methylPREDNISolone NA SUCC 40 MG/1 ML VIAL IVPUSH SCH (22:14)
[2019-11-05] MEDS: PRAZOSIN HCL 1 MG CAPSULE PO SCH (22:15)
[2019-11-06] MEDS: INSULIN SLIDING SCALE (NOVOLOG) 1 VIAL SQ SCH ×4 (06:18→21:31)
[2019-11-06 07:18] LABS: BASO % 0.2 % (0-2.0); HEMATOCRIT 45.1 % (35.4-49); MCH 23.1 pg (25.7-33.7); MCHC 28.9 g/dl (32.0-35.9); MEAN CELL VOLUME 80.1 fl (80-96); MEAN PLT VOLUME 9.4 fl (7.5-11.1); MONO % 3.9 % (3.8-10.2); NEUT % 60.9 % (42.8-82.8); PLATELET COUNT 166 K/MM3 (134-434); RBC 5.63 M/mm3 (4.00-5.60); RDW 21.3 % (11.9-15.9)
[2019-11-06] MEDS ORDERED: PT OWN MED DRAWER 7, Y5N ONE ×4 (07:46→21:24)
[2019-11-06 07:56] LABS: ALBUMIN 3.3 g/dl (3.4-5.0); BILIRUBIN,TOTAL 0.7 mg/dL (0.2-1); BLOOD UREA NITROGEN 16.3 mg/dL (7-18); CALCIUM 8.9 mg/dL (8.5-10.1); CREATININE 0.6 mg/dL (0.55-1.3); MAGNESIUM 2.3 mg/dL (1.8-2.4); PHOSPHOROUS 3.5 mg/dL (2.5-4.9); POTASSIUM 4.9 mmol/L (3.5-5.1); TOT PROT 7.9 g/dl (6.4-8.2)
--- NOTE | 2019-11-06 08:26 | PN ---
Physical Exam: SUBJECTIVE: Patient seen and examined Patient was examined at bed side. very pleasant to talk to did not endorse any complaints, doing well and comfortable OBJECTIVE: Vital Signs Period Temp Pulse Resp BP Sys/Bell Pulse Ox Last 24 Hr 97.5 F-98.4 F 85-96 16-22 116-139/70-94 95-100 GENERAL: The patient is awake, alert, and fully oriented, in no acute distress. HEAD: Normal with no signs of trauma. EYES: PERRL, extraocular movements intact, sclera anicteric, conjunctiva clear. No ptosis. ENT: Ears normal, nares patent, oropharynx clear without exudates, moist mucous membranes. NECK: Trachea midline, full range of motion, supple. LUNGS: Breath sounds equal, clear to auscultation bilaterally, no wheezes, no crackles, no accessory muscle use. HEART: Regular rate and rhythm, S1, S2 without murmur, rub or gallop. ABDOMEN: Soft, nontender, nondistended, normoactive bowel sounds, no guarding, no rebound, no hepatosplenomegaly, no masses. EXTREMITIES: 2+ pulses, warm, well-perfused, no edema. NEUROLOGICAL: Cranial nerves II through XII grossly intact. Normal speech, gait not observed. PSYCH: Normal mood, normal affect. SKIN: Warm, dry, normal turgor, no rashes or lesions noted Laboratory Results - last 24 hr 11/05/19 11/05/19 11/06/19 17:11 22:14 05:46 WBC RBC Hgb Hct MCV MCH MCHC RDW Plt Count MPV Absolute Neuts (auto) Neutrophils % Lymphocytes % Monocytes % Eosinophils % Basophils % Nucleated RBC % Sodium Potassium Chloride Carbon Dioxide Anion Gap BUN Creatinine Est GFR (CKD-EPI)AfAm Est GFR (CKD-EPI)NonAf POC Glucometer 123 119 120 Random Glucose Hemoglobin A1c % Calcium Phosphorus Magnesium Total Bilirubin AST ALT Alkaline Phosphatase Total Protein Albumin 11/06/19 11/06/19 11/06/19 06:00 06:20 06:20 WBC 4.0 RBC 5.63 H Hgb 13.0 Hct 45.1 MCV 80.1 MCH 23.1 L MCHC 28.9 L RDW 21.3 H Plt Count 166 MPV 9.4 Absolute Neuts (auto) 2.4 Neutrophils % 60.9 D Lymphocytes % 35.0 Monocytes % 3.9 Eosinophils % 0.0 D Basophils % 0.2 Nucleated RBC % 0 Sodium 134 L Potassium 4.9 Chloride 102 Carbon Dioxide 27 Anion Gap 5 L BUN 16.3 Creatinine 0.6 Est GFR (CKD-EPI)AfAm 128.45 Est GFR (CKD-EPI)NonAf 110.83 POC Glucometer Random Glucose 121 H Hemoglobin A1c % 6.4 H Calcium 8.9 Phosphorus 3.5 Magnesium 2.3 Total Bilirubin 0.7 AST 19 ALT 24 Alkaline Phosphatase 105 Total Protein 7.9 Albumin 3.3 L Active Medications Generic Name Dose Route Start Last Admin Trade Name Freq PRN Reason Stop Dose Admin Albuterol/Ipratropium 1 amp 11/05/19 16:00 11/05/19 16:21 Duoneb - NEB Not Given RQID [facility] Aripiprazole 10 mg 11/05/19 22:00 11/05/19 22:14 Abilify PO 10 mg HS [facility] Administration Chlorhexidine Gluconate 1 applic 11/05/19 22:00 Hibiclens For Decolonization - TP HS [facility] Enoxaparin Sodium 40 mg 11/05/19 10:00 11/05/19 10:15 Lovenox - SQ 40 mg DAILY [facility] Administration Ferrous Sulfate 325 mg 11/06/19 10:00 Feosol - PO DAILY [facility] Furosemide 40 mg 11/06/19 10:00 Lasix - PO DAILY [facility] Azithromycin 250 mg/ Dextrose 250 mls @ 250 mls/hr 11/06/19 10:00 IVPB DAILY [facility] Ceftriaxone Sodium 1 gm/ 50 mls @ 100 mls/hr 11/06/19 10:00 Dextrose IVPB DAILY [facility] Insulin Aspart 1 vial 11/05/19 16:30 11/06/19 06:18 Novolog Vial Sliding Scale - SQ Not Given ACHS [facility] Protocol Methylprednisolone Sodium Succinate 40 mg 11/05/19 22:00 11/05/19 22:14 Solu-Medrol - IVPUSH 40 mg BID [facility] Administration Mupirocin 1 applic 11/05/19 10:00 Bactroban Ointment (For Decolonization) - NS 11/10/19 09:59 BID [facility] Prazosin HCl 2 mg 11/05/19 22:00 11/05/19 22:15 Minipress - PO 2 mg HS [facility] Administration ASSESSMENT/PLAN: 59 yo M PMH questionable CHF, COPD/ asthma presents to ED for lethargy and hypoxia satting in the 70s. Patient was put on NIPPV and O2 sats improved now in the 90's. pt is in tele andsaturating well on 3 L NC O2. Acute hypoxic hypercapneic respiratory failure - 2/2 drug intoxication vs COPD - UTox positive for opiate, BZO, cocaine, Marijuana - CXR reviewed, possible infiltrates - BCx pending . no leukocytosis. no febrile events. - improved on BiPAP. ABGs reviewed. will get repeat ABG while on NC. - titrate O2 as tolerated but maintain O2 > 94% - Pulm consulted - will give Solumedrol 40 mg BID x 3 days - duonebs/ ventolin -c/w ceftriaxone , azithro - covid 19 pending - cont tele monitoring DM - will get A1C - hold metformin - ISS/ BGM Psych - c/w prazosin , abilify abnormal TSH - will get T3 F/E/N - monitor lytes - on liquids, speech and swallow eval requested before advancing DVT ppx: lovenox Meds reconciled from [facility] Dispo: transfer to tele ATTENDING PHYSICIAN STATEMENT I saw and evaluated the patient. I reviewed the resident's note and discussed the case with the resident. I agree with the resident's findings and plan as documented. SUBJECTIVE: OBJECTIVE: ASSESSMENT AND PLAN:
[2019-11-06] MEDS ORDERED: cefTRIAXone SODIUM 1 GM VIAL ONE (08:57)
[2019-11-06] MEDS ORDERED: DEXTROSE 5%-WATER - 50 ML IVPB ONE (08:58)
[2019-11-06] MEDS: CEFTRIAXONE 1 GM in DEXTROSE 5%-WATER - 50 ML IVPB SCH (09:27)
[2019-11-06] MEDS: methylPREDNISolone NA SUCC 40 MG/1 ML VIAL IVPUSH SCH ×2 (09:27→21:31)
[2019-11-06] MEDS: FERROUS SO4 325 MG TABLET (FP) PO SCH (09:28)
[2019-11-06] MEDS: FUROSEMIDE 40 MG TABLET (FP) PO SCH (09:28)
[2019-11-06] MEDS: ENOXAPARIN NA (PORCINE) 40 MG/0.4 ML DISP.SYRIN SQ SCH (09:28)
--- NOTE | 2019-11-06 10:48 | PN ---
Progress Note, Physician History of Present Illness: PULMONARY ALERT,COMFORTABLE,-C/O SOB,-CP,-COUGH - Current Medication List Current Medications: Active Medications Albuterol/Ipratropium (Duoneb -) 1 amp NEB RQID [facility] Last Admin: 11/05/19 16:21 Dose: Not Given Documented by: Aripiprazole (Abilify) 10 mg PO [facility] Last Admin: 11/05/19 22:14 Dose: 10 mg Documented by: Enoxaparin Sodium (Lovenox -) 40 mg SQ DAILY [facility] Last Admin: 11/06/19 09:28 Dose: 40 mg Documented by: Ferrous Sulfate (Feosol -) 325 mg PO DAILY [facility] Last Admin: 11/06/19 09:28 Dose: 325 mg Documented by: Furosemide (Lasix -) 40 mg PO DAILY [facility] Last Admin: 11/06/19 09:28 Dose: 40 mg Documented by: Azithromycin 250 mg/ Dextrose 250 mls @ 250 mls/hr IVPB DAILY [facility] Ceftriaxone Sodium 1 gm/ (Dextrose) 50 mls @ 100 mls/hr IVPB DAILY [facility] Last Admin: 11/06/19 09:27 Dose: 100 mls/hr Documented by: Insulin Aspart (Novolog Vial Sliding Scale -) 1 vial SQ [facility]; Protocol Last Admin: 11/06/19 06:18 Dose: Not Given Documented by: Methylprednisolone Sodium Succinate (Solu-Medrol -) 40 mg IVPUSH BID [facility] Last Admin: 11/06/19 09:27 Dose: 40 mg Documented by: Prazosin HCl (Minipress -) 2 mg PO [facility] Last Admin: 11/05/19 22:15 Dose: 2 mg Documented by: - Objective Vital Signs: Vital Signs Temperature 98.1 F 11/06/19 09:16 Pulse Rate 86 11/06/19 09:16 Respiratory Rate 20 11/06/19 09:16 Blood Pressure 130/71 11/06/19 09:16 O2 Sat by Pulse Oximetry (%) 96 11/06/19 08:41 Constitutional: Yes: Well Nourished, Calm Eyes: Yes: WNL HENT: Yes: WNL Neck: Yes: WNL Cardiovascular: Yes: Regular Rate and Rhythm, S1, S2 Respiratory: Yes: Diminished (few scattered wheezes) Gastrointestinal: Yes: Normal Bowel Sounds, Soft Extremities: Yes: WNL Edema: No Labs: CBC, BMP 11/06/19 06:20 11/06/19 06:20 INR, PTT INR 0.92 (0.83-1.09) 11/05/19 00:08 Problem List - Problems (1) Acute respiratory failure with hypoxia and hypercapnia Code(s): J96.01 - ACUTE RESPIRATORY FAILURE WITH HYPOXIA; J96.02 - ACUTE RES PIRATORY FAILURE WITH HYPERCAPNIA (2) Hypercapnic respiratory failure Code(s): J96.92 - RESPIRATORY FAILURE, UNSPECIFIED WITH HYPERCAPNIA Qualifiers: Chronicity: acute on chronic Qualified Code(s): J96.22 - Acute and chronic respiratory failure with hypercapnia (3) COPD (chronic obstructive pulmonary disease) Code(s): J44.9 - CHRONIC OBSTRUCTIVE PULMONARY DISEASE, UNSPECIFIED Assessment/Plan ASSESSMENT/PLAN: Acute on chronic hypercapneic and hypoxic respiratory failure : Improved with NIPPV support (complicated by drug intoxication). AE of COPD R/O PNA Substance abuse disorder R/O CHF history R/O COVID19 infection R/O OSAS NC O2 NIPPV as needed Sleep Screen Aspiration precautions IV steroids BD TX No smoking was counseled Outpatient PFTs once stable ABX ABG DR MARY
[2019-11-06] MEDS: ALBUTEROL SO4 2.5/IPRATROPIUM 0.5 INH SOL 3 ML VIAL.NEB. NEB SCH (10:55)
[2019-11-06] MEDS: AZITHROMYCIN IVPB 250 MG in DEXTROSE 5%-WATER - 250 ML IVPB SCH (10:56)
[2019-11-06] MEDS: MUPIROCIN 2% TOPICAL OINTMENT FOR DECOLONIZATION NS SCH (11:04)
--- NOTE | 2019-11-06 13:38 | PN ---
Teaching Attending Note Name of Resident: Mani Munoz ATTENDING PHYSICIAN STATEMENT I saw and evaluated the patient. I reviewed the resident's note and discussed the case with the resident. I agree with the resident's findings and plan as documented. SUBJECTIVE: Seen and examined at bedside. Patient reports breathing is improved. Satting well on 2 L. Will start trial of room air. Pending venous blood gas. OBJECTIVE: Last Vital Signs Temp Pulse Resp BP Pulse Ox 98.1 F 86 20 130/71 96 11/06/19 09:16 11/06/19 09:16 11/06/19 09:16 11/06/19 09:16 11/06/19 08:41 PE: per resident note Labs/Imaging: reviewed ASSESSMENT AND PLAN: 59 yo M PMH questionable CHF, COPD/ asthma presents to ED for lethargy and hypoxia in the setting of acute hypercapneic hypoxic respiratory failure. Admitted to the ICU, started on bipap, improved, and downgraded to the floor Acute hypoxic hypercapneic respiratory failure - 2/2 drug intoxication vs COPD exacerbation: possible infiltrates on CXR. Lungs are now clear on exam with good air movement - clinically improved: pending vbg for f/u PCO2 - UTox positive for opiate, BZO, cocaine, Marijuana - Pulm on board: appreciate recs - will give Solumedrol 40 mg BID x 2/3 days - duonebs/ ventolin -c/w ceftriaxone , azithro - covid 19 pending - cont tele monitoring DM - A1C 6.4 - hold metformin - ISS/ BGM Psych - c/w prazosin , abilify abnormal TSH - T4 wnl. repeat TSH in 4-6 weeks
[2019-11-06] MEDS: ARIPiprazole 10 MG TABLET PO SCH (21:31)
[2019-11-06] MEDS: PRAZOSIN HCL 1 MG CAPSULE PO SCH (21:31)
[2019-11-07] MEDS: INSULIN SLIDING SCALE (NOVOLOG) 1 VIAL SQ SCH ×3 (06:09→16:51)
--- NOTE | 2019-11-07 07:51 | PN ---
Progress Note, Physician History of Present Illness: pulmonary alert,feeling better,-c/o cp,sob improving - Current Medication List Current Medications: Active Medications Albuterol/Ipratropium (Duoneb -) 1 amp NEB RQID [facility] Last Admin: 11/06/19 10:55 Dose: Not Given Documented by: Aripiprazole (Abilify) 10 mg PO [facility] Last Admin: 11/06/19 21:31 Dose: 10 mg Documented by: Enoxaparin Sodium (Lovenox -) 40 mg SQ DAILY [facility] Last Admin: 11/06/19 09:28 Dose: 40 mg Documented by: Ferrous Sulfate (Feosol -) 325 mg PO DAILY [facility] Last Admin: 11/06/19 09:28 Dose: 325 mg Documented by: Furosemide (Lasix -) 40 mg PO DAILY [facility] Last Admin: 11/06/19 09:28 Dose: 40 mg Documented by: Azithromycin 250 mg/ Dextrose 250 mls @ 250 mls/hr IVPB DAILY [facility] Last Admin: 11/06/19 10:56 Dose: 250 mls/hr Documented by: Ceftriaxone Sodium 1 gm/ (Dextrose) 50 mls @ 100 mls/hr IVPB DAILY [facility] Last Admin: 11/06/19 09:27 Dose: 100 mls/hr Documented by: Insulin Aspart (Novolog Vial Sliding Scale -) 1 vial SQ [facility]; Protocol Last Admin: 11/07/19 06:09 Dose: Not Given Documented by: Methylprednisolone Sodium Succinate (Solu-Medrol -) 40 mg IVPUSH BID [facility] Last Admin: 11/06/19 21:31 Dose: 40 mg Documented by: Prazosin HCl (Minipress -) 2 mg PO [facility] Last Admin: 11/06/19 21:31 Dose: 2 mg Documented by: - Objective Vital Signs: Vital Signs Temperature 98.3 F 11/07/19 06:00 Pulse Rate 73 11/07/19 06:00 Respiratory Rate 19 11/07/19 06:00 Blood Pressure 149/101 H 11/07/19 06:00 O2 Sat by Pulse Oximetry (%) 97 11/07/19 05:14 Constitutional: Yes: Well Nourished, Calm Eyes: Yes: WNL HENT: Yes: WNL Neck: Yes: WNL Cardiovascular: Yes: Regular Rate and Rhythm, S1, S2 Respiratory: Yes: Diminished Gastrointestinal: Yes: Normal Bowel Sounds, Soft Extremities: Yes: WNL Edema: No Labs: INR, PTT INR 0.92 (0.83-1.09) 11/05/19 00:08 Problem List - Problems (1) Acute respiratory failure with hypoxia and hypercapnia Code(s): J96.01 - ACUTE RESPIRATORY FAILURE WITH HYPOXIA; J96.02 - ACUTE RESPIRATORY FAILURE WITH HYPERCAPNIA (2) Hypercapnic respiratory failure Code(s): J96.92 - RESPIRATORY FAILURE, UNSPECIFIED WITH HYPERCAPNIA Qualifiers: Chronicity: acute on chronic Qualified Code(s): J96.22 - Acute and chronic respiratory failure with hypercapnia (3) COPD (chronic obstructive pulmonary disease) Code(s): J44.9 - CHRONIC OBSTRUCTIVE PULMONARY DISEASE, UNSPECIFIED Assessment/Plan ASSESSMENT/PLAN: Acute on chronic hypercapneic and hypoxic respiratory failure : Improved with NIPPV support (complicated by drug intoxication). AE of COPD improving R/O PNA Substance abuse disorder R/O CHF history R/O COVID19 infection R/O OSAS NC O2 NIPPV as needed Sleep Screen Aspiration precautions IV steroids BD TX No smoking was counseled Outpatient PFTs once stable ABX ABG pt refusing chest ct DR MARY
[2019-11-07] MEDS: ALBUTEROL SO4 2.5/IPRATROPIUM 0.5 INH SOL 3 ML VIAL.NEB. NEB SCH ×3 (08:00→18:36)
[2019-11-07 08:09] LABS: BASO % 0.3 % (0-2.0); HEMATOCRIT 46.1 % (35.4-49); HEMOGLOBIN 13.5 GM/dL (11.7-16.9); LYMPH % 32.1 % (8-40); MCH 23.2 pg (25.7-33.7); MCHC 29.4 g/dl (32.0-35.9); MEAN CELL VOLUME 78.9 fl (80-96); MEAN PLT VOLUME 9.7 fl (7.5-11.1); MONO % 3.3 % (3.8-10.2); NEUT % 64.3 % (42.8-82.8); PLATELET COUNT 166 K/MM3 (134-434); RBC 5.84 M/mm3 (4.00-5.60); RDW 20.9 % (11.9-15.9); WHITE BLOOD COUNT 5.4 K/mm3 (4.0-10.0)
[2019-11-07 08:13] LABS: ALBUMIN 3.5 g/dl (3.4-5.0); BILIRUBIN,TOTAL 0.8 mg/dL (0.2-1); BLOOD UREA NITROGEN 20.5 mg/dL (7-18); CALCIUM 9.7 mg/dL (8.5-10.1); CREATININE 0.6 mg/dL (0.55-1.3); POTASSIUM 4.8 mmol/L (3.5-5.1); TOT PROT 8.2 g/dl (6.4-8.2)
[2019-11-07] MEDS ORDERED: VANCOMYCIN 1 GM in D5W (PRE-DOCKED) 1,000 MG/250 ML IVPB ONE (08:45)
[2019-11-07] MEDS ORDERED: cefTRIAXone SODIUM 1 GM VIAL ONE (09:21)
[2019-11-07] MEDS ORDERED: DEXTROSE 5%-WATER - 50 ML IVPB ONE (09:21)
[2019-11-07] MEDS ORDERED: PT OWN MED DRAWER 7, Y5N ONE ×2 (09:22→20:55)
[2019-11-07] MEDS: methylPREDNISolone NA SUCC 40 MG/1 ML VIAL IVPUSH SCH ×2 (09:53→22:02)
[2019-11-07] MEDS: CEFTRIAXONE 1 GM in DEXTROSE 5%-WATER - 50 ML IVPB SCH (09:54)
[2019-11-07] MEDS: FUROSEMIDE 40 MG TABLET (FP) PO SCH (10:17)
[2019-11-07] MEDS: ENOXAPARIN NA (PORCINE) 40 MG/0.4 ML DISP.SYRIN SQ SCH (10:18)
[2019-11-07] MEDS: FERROUS SO4 325 MG TABLET (FP) PO SCH (10:18)
--- NOTE | 2019-11-07 11:07 | PN ---
Progress Note (short form) - Note Progress Note: ID CONSULT DICTATED +BC ? SIGNIFICANCE ACUTE EXACERBATION COPD R/O PNEUMONIA R/O COVID -19 AWAIT REPEAT BC EMPIRIC VANCOMYCIN PENDING C/S CEFTRIAXONE/ ZITHROMAX COVID-[address] CHEST HIV TEST (PT CONSENTS)
[2019-11-07] MEDS: VANCOMYCIN 1 GRAM (PRE-DOCKED) 1,000 MG/250 ML BAG IVPB SCH ×2 (11:23→23:25)
[2019-11-07] MEDS: AZITHROMYCIN IVPB 250 MG in DEXTROSE 5%-WATER - 250 ML IVPB SCH (12:43)
--- NOTE | 2019-11-07 13:02 | CONS ---
DATE OF CONSULTATION: DATE OF DICTATION: 11/07/2019 The patient is a 59-year-old male who was evaluated for positive blood cultures. He has a history of COPD and congestive heart failure. Patient reports being hospitalized a [facility] in late August and early September with shortness of breath. He apparently was treated for COPD at that time. According to the notes, he had signed out against medical advice. The patient states he had been doing well since his discharge from the hospital. He was admitted to [facility] on November 05, 2019, after he was noted to have increasing shortness of breath and lethargy. He reports being at a friend's house and was noted to be short of breath and more lethargic. He was admitted to the emergency room where chest x-ray showed atelectasis and scarring of the right lung base. His hospital course was complicated by hypoxemia requiring placement of a BiPAP mask. He was empirically treated with Zithromax and ceftriaxone. His toxicology screen was positive. CAT scan of the head was negative for acute infarct or bleed. Blood cultures are now positive for gram-positive cocci in clusters. One blood culture is preliminarily a coagulase-negative staph. I contacted [facility]. There were no positive blood cultures during his admission at that facility. At the present time he is awake and alert. He reports that his breathing is much improved. He denies any chest pain, shortness of breath. He has occasional cough productive of whitish sputum. He denies any hemoptysis. No complaints of fever or chills. PAST MEDICAL HISTORY: Positive for COPD, congestive heart failure. ALLERGIES: No known allergies. MEDICATIONS: At the present time include vancomycin, ceftriaxone, Zithromax, albuterol, Lovenox, prazosin, Abilify, Lasix. 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 Positive history of tobacco use, inhalation heroin, and marijuana. He reports testing HIV negative in the past; however, consents for repeat testing. Denies any risk factors. REVIEW OF SYSTEMS: Neurologic: No loss of consciousness, seizure activity, or focal weakness. Cardiac: Negative chest pain or palpitations. Respiratory: As per HPI. Gastrointestinal: Negative vomiting or diarrhea. Genitourinary: Negative for urinary tract infection. LABORATORY DATA: White count 5.4, hematocrit 46.1, platelet count 166. Urinalysis negative. Liver enzymes normal. Toxicology screen is positive for opiates, benzodiazepine, cocaine, marijuana. COVID-19 PCR pending. PHYSICAL EXAMINATION: General: He is awake, supine in bed, in no acute respiratory distress. Vital Signs: Temperature 98.3, blood pressure 149/101, pulse 73, regular. Respirations 19 per minute. HEENT: Sclerae are anicteric. Cardiovascular: Heart sounds S1, S2. Lungs: Scattered rhonchi bilaterally. Abdomen: Soft, obese, nontender. Extremities: Negative for edema. IMPRESSION: 1. Positive blood culture, uncertain significance. 2. Acute exacerbation of chronic obstructive pulmonary disease. 3. Rule out pneumonia. 4. Rule out COVID-19. Await identification of blood isolates. It appears at least one of the blood cultures is positive for coagulase-negative staph. The other blood culture is pending. Continue empiric vancomycin pending cultures. Continue ceftriaxone and Zithromax. Await COVID-19 PCR. CAT scan of the chest. Pulmonary evaluation. HIV testing (patient consents). Thank you for the kind referral. THOMAS SHER M.D. [id number]
[2019-11-07 13:21] LABS: VENOUS BASE EXCESS -1.1 mmol/L (-2-2); VENOUS O2 SATURATION 64.3 % (70-80); VENOUS PCO2 59.3 mmHg (38-52); VENOUS PH 7.276 (7.310-7.410)
--- NOTE | 2019-11-07 13:43 | PN ---
Physical Exam: SUBJECTIVE: Patient seen and examined Patient was examined at bedside Patient has no acute overnight events. OBJECTIVE: Vital Signs Period Temp Pulse Resp BP Sys/Bell Pulse Ox Last 24 Hr 97.9 F-98.6 F 69-83 19-20 136-149/79-101 96-99 GENERAL: The patient is awake, alert, and fully oriented, in no acute distress. HEAD: Normal with no signs of trauma. EYES: PERRL, extraocular movements intact, sclera anicteric, conjunctiva clear. No ptosis. ENT: Ears normal, nares patent, oropharynx clear without exudates, moist mucous membranes. NECK: Trachea midline, full range of motion, supple. LUNGS: Breath sounds equal, clear to auscultation bilaterally, no wheezes, no crackles, no accessory muscle use. HEART: Regular rate and rhythm, S1, S2 without murmur, rub or gallop. ABDOMEN: Soft, nontender, nondistended, normoactive bowel sounds, no guarding, no rebound, no hepatosplenomegaly, no masses. EXTREMITIES: 2+ pulses, warm, well-perfused, no edema. NEUROLOGICAL: Cranial nerves II through XII grossly intact. Normal speech, gait not observed. PSYCH: Normal mood, normal affect. SKIN: Warm, dry, normal turgor, no rashes or lesions noted Laboratory Results - last 24 hr 11/06/19 11/07/19 11/07/19 21:30 06:25 06:25 WBC 5.4 RBC 5.84 H Hgb 13.5 Hct 46.1 MCV 78.9 L MCH 23.2 L MCHC 29.4 L RDW 20.9 H Plt Count 166 MPV 9.7 Absolute Neuts (auto) 3.4 Neutrophils % 64.3 Lymphocytes % 32.1 Monocytes % 3.3 L Eosinophils % 0.0 Basophils % 0.3 Nucleated RBC % 0 VBG pH POC VBG pCO2 POC VBG pO2 VBG HCO3 VBG O2 Sat (Yudi) VBG Base Excess Sodium 134 L Potassium 4.8 Chloride 100 Carbon Dioxide 27 Anion Gap 7 L BUN 20.5 H Creatinine 0.6 Est GFR (CKD-EPI)AfAm 128.45 Est GFR (CKD-EPI)NonAf 110.83 POC Glucometer 111 Random Glucose 126 H Calcium 9.7 Total Bilirubin 0.8 AST 18 ALT 25 Alkaline Phosphatase 108 Total Protein 8.2 Albumin 3.5 11/07/19 12:48 WBC RBC Hgb Hct MCV MCH MCHC RDW Plt Count MPV Absolute Neuts (auto) Neutrophils % Lymphocytes % Monocytes % Eosinophils % Basophils % Nucleated RBC % VBG pH 7.276 L POC VBG pCO2 59.3 H POC VBG pO2 38.2 VBG HCO3 27.0 VBG O2 Sat (Yudi) 64.3 L VBG Base Excess -1.1 Sodium Potassium Chloride Carbon Dioxide Anion Gap BUN Creatinine Est GFR (CKD-EPI)AfAm Est GFR (CKD-EPI)NonAf POC Glucometer Random Glucose Calcium Total Bilirubin AST ALT Alkaline Phosphatase Total Protein Albumin Active Medications Generic Name Dose Route Start Last Admin Trade Name Freq PRN Reason Stop Dose Admin Albuterol/Ipratropium 1 amp 11/05/19 16:00 11/07/19 13:05 Duoneb - NEB Not Given RQID [facility] Aripiprazole 10 mg 11/05/19 22:00 11/06/19 21:31 Abilify PO 10 mg HS [facility] Administration Enoxaparin Sodium 40 mg 11/05/19 10:00 11/07/19 10:18 Lovenox - SQ 40 mg DAILY [facility] Administration Ferrous Sulfate 325 mg 11/06/19 10:00 11/07/19 10:18 Feosol - PO 325 mg DAILY [facility] Administration Furosemide 40 mg 11/06/19 10:00 11/07/19 10:17 Lasix - PO 40 mg DAILY [facility] Administration Azithromycin 250 mg/ Dextrose 250 mls @ 250 mls/hr 11/06/19 10:00 11/07/19 12:43 IVPB 250 mls/hr DAILY [facility] Administration Ceftriaxone Sodium 1 gm/ 50 mls @ 100 mls/hr 11/06/19 10:00 11/07/19 09:54 Dextrose IVPB 100 mls/hr DAILY [facility] Administration Vancomycin HCl 1,000 mg in 250 mls @ 166.667 mls/hr 11/07/19 11:00 11/07/19 11:23 Vancomycin (Pre-Docked) IVPB Not Given BID@1100,2300 [facility] Protocol Insulin Aspart 1 vial 11/05/19 16:30 11/07/19 11:35 Novolog Vial Sliding Scale - SQ Not Given ACHS [facility] Protocol Methylprednisolone Sodium Succinate 40 mg 11/05/19 22:00 11/07/19 09:53 Solu-Medrol - IVPUSH 11/08/19 06:00 40 mg BID [facility] Administration Prazosin HCl 2 mg 11/05/19 22:00 11/06/19 21:31 Minipress - PO 2 mg HS [facility] Administration Prednisone 40 mg 11/08/19 10:00 Deltasone - PO 11/10/19 06:00 DAILY [facility] ASSESSMENT/PLAN: 59 yo M PMH questionable CHF, COPD/ asthma presents to ED for lethargy and hypoxia. Patient was put on NIPPV and O2 sats improved now in the 90's. pt is in tele andsaturating well on room air Acute hypoxic hypercapneic respiratory failure - Patient was weaned off nasul canula and is satting at 97 on room air -VBG pH - 7.27 - UTox positive for opiate, BZO, cocaine, Marijuana - BCx pending . positive gram + cocci in clusters- in both samples - gram + coag negative staph - UC pending - Pulm consulted - duonebs/ ventolin -c/w ceftriaxone , azithro - covid 19 pending - cont tele monitoring DM - hold metformin - ISS/ BGM Psych - c/w prazosin , abilify F/E/N - monitor lytes - on liquids, speech and swallow eval requested before advancing DVT ppx: lovenox Meds reconciled from [facility] Visit type - Emergency Visit Emergency Visit: No - New Patient This patient is new to me today: No - Critical Care Critical Care patient: No - Discharge Referral Referred to [facility] Med P.C[facility] No ATTENDING PHYSICIAN STATEMENT I saw and evaluated the patient. I reviewed the resident's note and discussed the case with the resident. I agree with the resident's findings and plan as documented. SUBJECTIVE: OBJECTIVE: ASSESSMENT AND PLAN:
--- NOTE | 2019-11-07 14:22 | PN ---
Teaching Attending Note Name of Resident: Mani Munoz ATTENDING PHYSICIAN STATEMENT I saw and evaluated the patient. I reviewed the resident's note and discussed the case with the resident. I agree with the resident's findings and plan as documented. SUBJECTIVE: Seen and examined at bedside. Patient feels well. Admission blood cultures are now positive in 2 out of 2 bottles for gram-positive cocci in clusters. Vancomycin started. Discharge held pending repeat culture. ID consulted. Will get CT chest and HIV. OBJECTIVE: Last Vital Signs Temp Pulse Resp BP Pulse Ox 98.1 F 72 18 149/98 99 11/07/19 14:15 11/07/19 14:15 11/07/19 14:15 11/07/19 14:15 11/07/19 11:57 PE: per resident note Labs/Imaging: reviewed ASSESSMENT AND PLAN: 59 yo M PMH questionable CHF, COPD/ asthma presents to ED for lethargy and hypoxia in the setting of acute hypercapneic hypoxic respiratory failure. Admitted to the ICU, started on bipap, improved, and downgraded to the floor Coag negative staph bacteremia 2/2 bottles positive -Patient afebrile and without white count. Initially positive in 1 out of 2 bottles and thought to being contaminant now positive in 2 out of 2 bottles. Repeat culture sent yesterday Vancomycin started ID consulted: Appreciate Recs CT chest HIV test Acute hypoxic hypercapneic respiratory failure - 2/2 drug intoxication vs COPD exacerbation: possible infiltrates on CXR. Lungs are now clear on exam with good air movement - clinically improved: pending vbg for f/u PCO2 - UTox positive for opiate, BZO, cocaine, Marijuana - Pulm on board: appreciate recs - will give Solumedrol 40 mg BID x 2/3 days - duonebs/ ventolin -c/w ceftriaxone , azithro - covid 19 pending - cont tele monitoring DM - A1C 6.4 - hold metformin - ISS/ BGM Psych - c/w prazosin , abilify abnormal TSH - T4 wnl. repeat TSH in 4-6 weeks
[2019-11-07] MEDS: PRAZOSIN HCL 1 MG CAPSULE PO SCH (22:00)
[2019-11-07] MEDS: ARIPiprazole 10 MG TABLET PO SCH (22:01)
[2019-11-08] MEDS: INSULIN SLIDING SCALE (NOVOLOG) 1 VIAL SQ SCH ×4 (00:55→17:14)
--- NOTE | 2019-11-08 07:52 | PN ---
Progress Note, Physician History of Present Illness: pulmonary alert,comfortable,on nasal cannula,-sob,-baez,-cp - Current Medication List Current Medications: Active Medications Albuterol/Ipratropium (Duoneb -) 1 amp NEB RQID [facility] Last Admin: 11/07/19 18:36 Dose: Not Given Documented by: Aripiprazole (Abilify) 10 mg PO HS [facility] Last Admin: 11/07/19 22:01 Dose: 10 mg Documented by: Enoxaparin Sodium (Lovenox -) 40 mg SQ DAILY [facility] Ferrous Sulfate (Feosol -) 325 mg PO DAILY [facility] Last Admin: 11/07/19 10:18 Dose: 325 mg Documented by: Furosemide (Lasix -) 40 mg PO DAILY [facility] Last Admin: 11/07/19 10:17 Dose: 40 mg Documented by: Vancomycin HCl (Vancomycin (Pre-Docked)) 1,000 mg in 250 mls @ 166.667 mls/hr IVPB BID@1100,2300 [facility]; Protocol Last Admin: 11/07/19 23:25 Dose: 166.667 mls/hr Documented by: Ceftriaxone Sodium 1 gm/ (Dextrose) 50 mls @ 100 mls/hr IVPB DAILY [facility] Azithromycin 250 mg/ Dextrose 250 mls @ 250 mls/hr IVPB DAILY [facility] Insulin Aspart (Novolog Vial Sliding Scale -) 1 vial SQ ACHS [facility]; Protocol Last Admin: 11/08/19 06:44 Dose: 2 units Documented by: Prazosin HCl (Minipress -) 2 mg PO [facility] Last Admin: 11/07/19 22:00 Dose: 2 mg Documented by: Prednisone (Deltasone -) 40 mg PO DAILY [facility] Stop: 11/10/19 06:00 - Objective Vital Signs: Vital Signs Temperature 97.0 F L 11/08/19 05:44 Pulse Rate 69 11/08/19 05:44 Respiratory Rate 18 11/08/19 05:44 Blood Pressure 147/97 11/08/19 05:44 O2 Sat by Pulse Oximetry (%) 92 L 11/07/19 18:00 Constitutional: Yes: Well Nourished, Calm Eyes: Yes: WNL HENT: Yes: WNL Neck: Yes: WNL Cardiovascular: Yes: Regular Rate and Rhythm, S1, S2 Respiratory: Yes: CTA Bilaterally Gastrointestinal: Yes: Normal Bowel Sounds, Soft Extremities: Yes: WNL Edema: No Labs: CBC, BMP Problem List - Problems (1) Acute respiratory failure with hypoxia and hypercapnia Code(s): J96.01 - ACUTE RESPIRATORY FAILURE WITH HYPOXIA; J96.02 - ACUTE RESPIRATORY FAILURE WITH HYPERCAPNIA (2) Hypercapnic respiratory failure Code(s): J96.92 - RESPIRATORY FAILURE, UNSPECIFIED WITH HYPERCAPNIA Qualifiers: Chronicity: acute on chronic Qualified Code(s): J96.22 - Acute and chronic respiratory failure with hypercapnia (3) COPD (chronic obstructive pulmonary disease) Code(s): J44.9 - CHRONIC OBSTRUCTIVE PULMONARY DISEASE, UNSPECIFIED Assessment/Plan ASSESSMENT/PLAN: Acute on chronic hypercapneic and hypoxic respiratory failure : Improved with NIPPV support (complicated by drug intoxication). Hypercapnea improving AE of COPD improving R/O PNA chest ct no evidece of pneumonia Substance abuse disorder R/O CHF history R/O COVID19 infection - PCR R/O OSAS NC O2 NIPPV as needed Sleep Screen tonight Aspiration precautions Prednisone BD TX No smoking was counseled Outpatient PFTs once stable ABX COVID NEGATIVE f/u abg on ra if pt consents DR MARY
[2019-11-08] MEDS: ALBUTEROL SO4 2.5/IPRATROPIUM 0.5 INH SOL 3 ML VIAL.NEB. NEB SCH ×3 (08:13→16:00)
[2019-11-08] MEDS ORDERED: CEFTRIAXONE 1 GM in DEXTROSE 5%-WATER - 50 ML IVPB SCH (10:00)
[2019-11-08] MEDS ORDERED: AZITHROMYCIN IVPB 250 MG in DEXTROSE 5%-WATER - 250 ML IVPB SCH (10:00)
[2019-11-08] MEDS ORDERED: ENOXAPARIN NA (PORCINE) 40 MG/0.4 ML DISP.SYRIN SQ SCH (10:00)
[2019-11-08] MEDS ORDERED: predniSONE 20 MG TABLET (UD) PO SCH (10:00)
[2019-11-08] MEDS ORDERED: DEXTROSE 5%-WATER - 50 ML IVPB ONE (10:14)
[2019-11-08] MEDS ORDERED: cefTRIAXone SODIUM 1 GM VIAL ONE (10:14)
[2019-11-08] MEDS: FUROSEMIDE 40 MG TABLET (FP) PO SCH (10:17)
[2019-11-08] MEDS: FERROUS SO4 325 MG TABLET (FP) PO SCH (10:17)
[2019-11-08] MEDS: VANCOMYCIN 1 GRAM (PRE-DOCKED) 1,000 MG/250 ML BAG IVPB SCH (12:35)
--- NOTE | 2019-11-08 16:47 | PN ---
Progress Note, Physician History of Present Illness: AWAKE, ALERT FE - Current Medication List Current Medications: Active Medications Albuterol/Ipratropium (Duoneb -) 1 amp NEB RQID [facility] Last Admin: 11/08/19 16:00 Dose: Not Given Documented by: Aripiprazole (Abilify) 10 mg PO HS [facility] Last Admin: 11/07/19 22:01 Dose: 10 mg Documented by: Enoxaparin Sodium (Lovenox -) 40 mg SQ DAILY [facility] Last Admin: 11/08/19 10:19 Dose: Not Given Documented by: Ferrous Sulfate (Feosol -) 325 mg PO DAILY [facility] Last Admin: 11/08/19 10:17 Dose: 325 mg Documented by: Furosemide (Lasix -) 40 mg PO DAILY [facility] Last Admin: 11/08/19 10:17 Dose: 40 mg Documented by: Vancomycin HCl (Vancomycin (Pre-Docked)) 1,000 mg in 250 mls @ 166.667 mls/hr IVPB BID@1100,2300 [facility]; Protocol Last Admin: 11/08/19 12:35 Dose: 166.667 mls/hr Documented by: Ceftriaxone Sodium 1 gm/ (Dextrose) 50 mls @ 100 mls/hr IVPB DAILY [facility] Last Admin: 11/08/19 10:17 Dose: 100 mls/hr Documented by: Azithromycin 250 mg/ Dextrose 250 mls @ 250 mls/hr IVPB DAILY [facility] Last Admin: 11/08/19 11:08 Dose: 250 mls/hr Documented by: Insulin Aspart (Novolog Vial Sliding Scale -) 1 vial SQ ACHS [facility]; Protocol Last Admin: 11/08/19 12:05 Dose: 2 units Documented by: Prazosin HCl (Minipress -) 2 mg PO [facility] Last Admin: 11/07/19 22:00 Dose: 2 mg Documented by: Prednisone (Deltasone -) 40 mg PO DAILY [facility] Stop: 11/10/19 06:00 Last Admin: 11/08/19 10:16 Dose: 40 mg Documented by: - Objective Vital Signs: Vital Signs Temperature 98.0 F 11/08/19 14:00 Pulse Rate 64 11/08/19 14:00 Respiratory Rate 18 11/08/19 14:00 Blood Pressure 158/100 11/08/19 14:00 O2 Sat by Pulse Oximetry (%) 98 11/08/19 09:00 Labs: CBC, BMP 11/07/19 06:25 11/07/19 06:25 INR, PTT INR 0.92 (0.83-1.09) 11/05/19 00:08
[2019-11-08 17:00] VITALS: BP 150/87; PULSE 62; TEMP 98.7
--- NOTE | 2019-11-08 17:26 | PN ---
Teaching Attending Note Name of Resident: Mani Munoz ATTENDING PHYSICIAN STATEMENT I saw and evaluated the patient. I reviewed the resident's note and discussed the case with the resident. I agree with the resident's findings and plan as documented. SUBJECTIVE: Seen and examined at bedside. Patient with no acute complaints. Satting well on room air and afebrile. Discussed case with ID. Cultures most likely represent a contaminant. Patient can be discharged with 1 day of prednisone and 1 week of Ceftin twice daily. Patient should follow-up with his primary care doctor OBJECTIVE: Last Vital Signs Temp Pulse Resp BP Pulse Ox 98.7 F 62 18 150/87 98 11/08/19 16:58 11/08/19 16:58 11/08/19 16:58 11/08/19 16:58 11/08/19 09:00 PE: per resident note Labs/Imaging: reviewed ASSESSMENT AND PLAN: 59 yo M PMH questionable CHF, COPD/ asthma presents to ED for lethargy and hypoxia in the setting of acute hypercapneic hypoxic respiratory failure. Admitted to the ICU, started on bipap, improved, and downgraded to the floor. Patient's now satting well on room air, without complaints. Course was complicated by blood cultures from admission which were positive for coag negative staph in 2 out of 2 bottles. Repeat cultures have been negative x2 days. Patient has had no signs or symptoms of acute infection during his stay other than these cultures. Discussed case with ID, and agree that these are likely contaminants. Patient will be discharged on 1 week of Ceftin and an ad ditional day of oral prednisone.
--- NOTE | 2019-11-08 17:52 | PN ---
Physical Exam: SUBJECTIVE: Patient seen and examined Patient endorses no acute events overnight. OBJECTIVE: Vital Signs Period Temp Pulse Resp BP Sys/Bell Pulse Ox Last 24 Hr 97.0 F-98.7 F 62-75 18-20 143-158/84-103 92-98 GENERAL: The patient is awake, alert, and fully oriented, in no acute distress. HEAD: Normal with no signs of trauma. EYES: PERRL, extraocular movements intact, sclera anicteric, conjunctiva clear. No ptosis. ENT: Ears normal, nares patent, oropharynx clear without exudates, moist mucous membranes. NECK: Trachea midline, full range of motion, supple. LUNGS: Breath sounds equal, clear to auscultation bilaterally, no wheezes, no crackles, no accessory muscle use. HEART: Regular rate and rhythm, S1, S2 without murmur, rub or gallop. ABDOMEN: Soft, nontender, nondistended, normoactive bowel sounds, no guarding, no rebound, no hepatosplenomegaly, no masses. EXTREMITIES: 2+ pulses, warm, well-perfused, no edema. NEUROLOGICAL: Cranial nerves II through XII grossly intact. Normal speech, gait not observed. PSYCH: Normal mood, normal affect. SKIN: Warm, dry, normal turgor, no rashes or lesions noted Laboratory Results - last 24 hr 11/05/19 11/06/19 11/08/19 11:00 06:20 05:54 POC Glucometer 165 Total T3 84.00 COVID-19 (ANTHONY) Not detected 11/08/19 11/08/19 11:59 16:41 POC Glucometer 153 155 Total T3 COVID-19 (ANTHONY) Active Medications Generic Name Dose Route Start Last Admin Trade Name Freq PRN Reason Stop Dose Admin Albuterol/Ipratropium 1 amp 11/05/19 16:00 11/08/19 16:00 Duoneb - NEB Not Given RQID [facility] Aripiprazole 10 mg 11/05/19 22:00 11/07/19 22:01 Abilify PO 10 mg HS [facility] Administration Enoxaparin Sodium 40 mg 11/08/19 10:00 11/08/19 10:19 Lovenox - SQ Not Given DAILY [facility] Ferrous Sulfate 325 mg 11/06/19 10:00 11/08/19 10:17 Feosol - PO 325 mg DAILY [facility] Administration Furosemide 40 mg 11/06/19 10:00 11/08/19 10:17 Lasix - PO 40 mg DAILY [facility] Administration Vancomycin HCl 1,000 mg in 250 mls @ 166.667 mls/hr 11/07/19 11:00 11/08/19 12:35 Vancomycin (Pre-Docked) IVPB 166.667 mls/hr BID@1100,2300 [facility] Administration Protocol Ceftriaxone Sodium 1 gm/ 50 mls @ 100 mls/hr 11/08/19 10:00 11/08/19 10:17 Dextrose IVPB 100 mls/hr DAILY [facility] Administration Azithromycin 250 mg/ Dextrose 250 mls @ 250 mls/hr 11/08/19 10:00 11/08/19 11:08 IVPB 250 mls/hr DAILY [facility] Administration Insulin Aspart 1 vial 11/05/19 16:30 11/08/19 17:14 Novolog Vial Sliding Scale - SQ 2 units ACHS [facility] Administration Protocol Prazosin HCl 2 mg 11/05/19 22:00 11/07/19 22:00 Minipress - PO 2 mg HS [facility] Administration Prednisone 40 mg 11/08/19 10:00 11/08/19 10:16 Deltasone - PO 11/10/19 06:00 40 mg DAILY [facility] Administration ASSESSMENT/PLAN: ATTENDING PHYSICIAN STATEMENT I saw and evaluated the patient. I reviewed the resident's note and discussed the case with the resident. I agree with the resident's findings and plan as documented. SUBJECTIVE: OBJECTIVE: ASSESSMENT AND PLAN:
--- NOTE | 2019-11-08 17:55 | DS ---
Physical Exam: SUBJECTIVE: Patient seen and examined Patient observed at bed side. Endorses no acute events overnight. OBJECTIVE: Vital Signs Period Temp Pulse Resp BP Sys/Bell Pulse Ox Last 24 Hr 97.0 F-98.7 F 62-75 18-20 143-158/84-103 92-98 PHYSICAL EXAM GENERAL: The patient is awake, alert, and fully oriented, in no acute distress. HEAD: Normal with no signs of trauma. EYES: PERRL, extraocular movements intact, sclera anicteric, conjunctiva clear. ENT: Ears normal, nares patent, oropharynx clear without exudates, moist mucous membranes. NECK: Trachea midline, full range of motion, supple. LUNGS: Breath sounds equal, clear to auscultation bilaterally, no wheezes, no crackles, no accessory muscle use. HEART: Regular rate and rhythm, S1, S2 without murmur, rub or gallop. ABDOMEN: Soft, nontender, nondistended, normoactive bowel sounds, no guarding, no rebound, no hepatosplenomegaly, no masses. EXTREMITIES: 2+ pulses, warm, well-perfused, no edema. NEUROLOGICAL: Cranial nerves II through XII grossly intact. Normal speech, gait not observed. PSYCH: Normal mood, normal affect. SKIN: Warm, dry, normal turgor, no rashes or lesions noted. LABS Laboratory Results - last 24 hr 11/05/19 11/06/19 11/08/19 11:00 06:20 05:54 POC Glucometer 165 Total T3 84.00 COVID-19 (ANTHONY) Not detected 11/08/19 11/08/19 11:59 16:41 POC Glucometer 153 155 Total T3 COVID-19 (ANTHONY) HOSPITAL COURSE: Date of Admission:11/05/19 Mr. Puente is a 59M with a past medical history of polysubstance abuse HTN, HLD, COPD, asthma who was found somnolent by his friends. He was taken to the ED where he was put on O2 and transfered to telemetry. Patient was on BIPAP and oxygen saturations improved. Patient was weaned off BIPAP and progressed to nasal canula. Patient was weaned off nasal canula and sated on room air at 96%. Patient was evaluated by infectious disease for two positive blood cultures. Patients blood cultures were both contaminants as per ID. Patient was cleared for discharge on antibiotics. Date of Discharge: 11/08/19 Minutes to complete discharge: 40 Discharge Summary Problems reviewed: Yes Reason For Visit: SHORTNESS OF BREATH Current Active Problems COPD (chronic obstructive pulmonary disease) (Chronic) Condition: Good - Instructions Diet, Activity, Other Instructions: YOUR VISIT: You were admitted to the hospital for shortness of breath and trouble breathing. While you were in the hospital we evaluated you with lab work, blood work, imaging including CAT scan of your head and chest, which showed no abnormalities. When you arrived, you were extremely sick and needed to be admit brisa ot the Intensive care unit. Your symptoms were likely caused by the overuse of recreation drugs. You were observed by our wine consultant and you were put on oxygen with good improvement. Your lab values improved greatly. You were also evaluate by our infectious disease doctor. The infectious disease doctor examined you and decided to discontinue the antibiotics. You are healthy enough for discharge home. Medications: Please START taking Ceftin 500 mg TWICE a day for ONE week Please START taking Prednisone 40 once a day for two more days starting tomorrow 11/08 and ending 11/09 Please take all other medications as directed FOLLOW UP: You will need to follow up with your wine consultant for evaluation of your lung function- Dr. Cota - within 1 week You will also need to follow up with your infectious disease doctor - Dr. Sue - within 1 week Please follow up with your primary care physician. If you do not have one, you may make an appointment with Dr. Mani Munoz at the [facility] clinic located at [address] [place] [address] ([phone]), you will need a repeat chest x ray. Additional information - you are being discharged home - Please return to the emergency department if you start experiencing worsening pain, fevers, chills, shortness of breath, chest pain, or if you experience any further concerning symptoms. Referrals: [facility] [place]Provider Group] - 1 Week Saturnino Sue MD [Staff Physician] - 1 Week Tr Cota MD [Staff Physician] - 1 Week Disposition: HOME - Home Medications Comprehensive Discharge Medication List: Ambulatory Orders Albuterol Sulfate [Albuterol Sulfate Hfa] 1 - 2 inh IH Q4H PRN 11/05/19 Aripiprazole [Abilify] 10 mg PO HS 11/05/19 Ferrous Sulfate 325 mg PO DAILY 11/05/19 Furosemide [Lasix -] 40 mg PO DAILY 11/05/19 Metformin HCl [Glucophage] 500 mg PO BID 11/05/19 Prazosin HCl [Minipress -] 2 mg PO HS 11/05/19 acetaZOLAMIDE [Diamox Sequels -] 500 mg PO BID 11/06/19 Cefuroxime Axetil [Ceftin -] 500 mg PO Q12H #14 tablet 11/08/19 Prednisone 10 mg PO DAILY #8 tablet 11/08/19 - Discharge Referral Referred to [facility] No ATTENDING PHYSICIAN STATEMENT I saw and evaluated the patient. I reviewed the resident's note and discussed the case with the resident. I agree with the resident's findings and plan as documented. SUBJECTIVE: OBJECTIVE: ASSESSMENT AND PLAN:
== END 2019-11-08 18:40 | disposition home or self-care (01) | DRG 812 ==
LOC: JER 22:33 → JERBED 11-05 05:45 → J4S 11-05 14:42
PROVIDERS: ADMIT Internal Medicine; ATTEND Internal Medicine
DX: T50.901A Poisoning by unspecified drugs, medicaments and biological substances, accidental (unintentional), initial encounter (principal); Z59.0 Homelessness; F17.210 Nicotine dependence, cigarettes, uncomplicated; F11.129 Opioid abuse with intoxication, unspecified; F12.129 Cannabis abuse with intoxication, unspecified; F14.929 Cocaine use, unspecified with intoxication, unspecified; F13.929 Sedative, hypnotic or anxiolytic use, unspecified with intoxication, unspecified; I51.7 Cardiomegaly; J98.11 Atelectasis; J96.22 Acute and chronic respiratory failure with hypercapnia; J44.1 Chronic obstructive pulmonary disease with (acute) exacerbation; J96.21 Acute and chronic respiratory failure with hypoxia; I50.9 Heart failure, unspecified
CPT/HCPCS: 36415; 36600; 70450-TC; 71045-TC-FY; 71250-TC; 72125-TC; 80053; 80307; 81003; 82140; 82550; 82803; 82962; 83036; 83605; 83735; 83880; 84100; 84436; 84443; 84480; 84484; 85025; 85610; 85730; 87040; 87086; 87186; 87389; 93005; 93010; 94640; 94660; 99285-25; U0003